=== PATIENT | female | born 1970 | race African-American/Black ===

== ENCOUNTER 2018-05-22 21:34 | Inpatient (IN) | payer OTHER ==
[2018-05-22 22:18] VITALS: BMI 22.2
[2018-05-22] MEDS ORDERED: METHADONE HCL 10 MG TABLET (FOR DETOX USE ONLY) PO ONE ×2 (23:00→23:18)
--- NOTE | 2018-05-22 23:05 | HP ---
COWS - Scale Resting Pulse: 0= CA 80 or Below Sweatin=Flushed/Facial Moisture Restless Observation: 0= Sits Still Pupil Size: 0= Normal to Room Light Bone or Joint Aches: 4=Acute Joint/Muscle Pain Runny Nose/ Eye Tearin= Nasal Congestion GI Upset > 30mins: 2= Nausea/Diarrhea Tremor Observation: 4= Gross Tremor/Twitching Yawning Observation: 0= None Anxiety or Irritability: 2=Irritable/Anxious Goose Flesh Skin: 0=Smooth Skin COWS Score: 15 CIWA Score - Admission Criteria OAS Guidelines: Admission for Medically Managed Detox: Requires at least one of the followin. CIWA greater than 12 2. Seizures within the past 24 hours 3. Delirium tremens within the past 24 hours 4. Hallucinations within the past 24 hours 5. Acute intervention needed for co occurring medical disorder 6. Acute intervention needed for co occurring psychiatric disorder 7. Severe withdrawal that cannot be handled at a lower level of care (continued vomiting, continued diarrhea, abnormal vital signs) requiring intravenous medication and/or fluids 8. Admission ROS [facility] Chief Complaint: Heroin withdrawal symptoms Allergies/Adverse Reactions: Allergies Allergy/AdvReac Type Severity Reaction Status Date / Time No Known Allergies Allergy Verified 05/22/18 22:18 History of Present Illness: 47 years old female with 9 years history of heroin dependence is seeking admission to detox. Patient has been in previous detox and reports 2 years of sobriety. She reports past medical history of depression and denies suicide attempt/suicidal ideation at this time. Exam Limitations: No Limitations - Ebola screening Have you traveled outside of the country in the last 21 days: No (N) Have you had contact with anyone from an Ebola affected area: No Have you been sick,other than usual withdrawal symptoms: No Do you have a fever: No - Review of Systems Constitutional: Chills, Malaise, Night Sweats EENT: reports: Nose Congestion Respiratory: reports: No Symptoms reported Cardiac: reports: No Symptoms Reported GI: reports: Nausea, Poor Appetite, Poor Fluid Intake, Abdominal cramping : reports: No Symptoms Reported Musculoskeletal: reports: Back Pain, Muscle Weakness Integumentary: reports: Dryness Neuro: reports: Headache, Tremors Endocrine: reports: No Symptoms Reported Hematology: reports: No Symptoms Reported Psychiatric: reports: Anxious, Depressed Other Systems: Reviewed and Negative Patient History - Patient Medical History Hx Anemia: No Hx Asthma: No Hx Chronic Obstructive Pulmonary Disease (COPD): No Hx Cancer: No Hx Cardiac Disorders: No Hx Congestive Heart Failure: No Hx Hypertension: No Hx Hypercholesterolemia: No Hx Pacemaker: No HX Cerebrovascular Accident: No Hx Seizures: No Hx Dementia: No Hx Diabetes: No Hx Gastrointestinal Disorders: No Hx Liver Disease: No Hx Genitourinary Disorders: No Hx Sexually Transmitted Disorders: No Hx Renal Disease (ESRD): No Hx Thyroid Disease: No Hx Human Immunodeficiency Virus (HIV): No Hx Hepatitis C: No Hx Depression: Yes (Not on medication) Hx Suicide Attempt: No (Denies suicide attept/suicidal ideation at this time) Hx Bipolar Disorder: No Hx Schizophrenia: No - Patient Surgical History Past Surgical History: No - PPD History Previous Implant?: Yes Documented Results: Negative w/o proof Implanted On Prior [facility] Admission?: No PPD to be Administered?: Yes - Reproductive History Patient is a Female of Child Bearing Age (11 -55 yrs old): Yes Last Menstrual Period: 04/07/18 Patient : No - Smoking Cessation Smoking history: Current every day smoker Have you smoked in the past 12 months: Yes Aproximately how many cigarettes per day: 10 Hx Chewing Tobacco Use: No Initiated information on smoking cessation: Yes 'Breaking Loose' booklet given: 05/22/18 - Substance & Tx. History Hx Alcohol Use: No Hx Substance Use: Yes Substance Use Type: Cocaine, Heroin, Opiates Hx Substance Use Treatment: No - Substances Abused Heroin Route: Injection Frequency: Daily Amount used: 2 BUNDLES Age of first use: 40 Date of Last Use: 05/22/18 Cocaine Route: Smoking Frequency: Daily Amount used: $100 Age of first use: 40 Date of Last Use: 05/22/18 Family Disease History - Family Disease History Family History: Denies Admission Physical Exam [facility] - Vital Signs Vital Signs: Vital Signs - 24 hr 05/22/18 22:08 Temperature 96.2 F L Pulse Rate 67 Respiratory 18 Rate Blood Pressure 123/71 - Physical General Appearance: Yes: Moderate Distress, Tremorous, Irritable, Sweating, Anxious HEENTM: Yes: EOMI, Normal ENT Inspection, Normocephalic, Normal Voice, SAMANTHA Respiratory: Yes: Lungs Clear, Normal Breath Sounds, No Respiratory Distress Neck: Yes: Supple Breast: Yes: Breast Exam Deferred Cardiology: Yes: Regular Rhythm, Regular Rate Abdominal: Yes: Normal Bowel Sounds, Soft Genitourinary: Yes: Within Normal Limits Back: Yes: Normal Inspection Extremities: Yes: Tremors Neurological: Yes: emergency dept tech II-XII NML intact, Alert, Normal Mood/Affect Integumentary: Yes: Warm Lymphatic: Yes: Within Normal Limits - Diagnostic (1) Depression Current Visit: Yes Status: Chronic Qualifiers: Depression Type: unspecified Qualified Code(s): F32.9 - Major depressive disorder, single episode, unspecified (2) Opioid dependence with withdrawal Current Visit: Yes Status: Chronic (3) Cocaine dependence, uncomplicated Current Visit: Yes Status: Chronic Cleared for Admission [facility] - Detox or Rehab [facility] Level of Care: Medically Managed Detox Regimen/Protocol: Methadone [facility] Breath Alcohol Content Breath Alcohol Content: 0 Urine Pregancy Test - Result Urine Test Results: Negative- NO Line Present Urine Drug Screen - Results Drug Screen Negative: No Urine Drug Screen Results: KEITH-Cocaine, OPI-Opiates, BZO-Benzodiazepines, MTD- Methadone, OXY-Oxycodone, FEN-Fentanyl
[2018-05-22] MEDS ORDERED: guaiFENesin/D-METHORPHAN HB 10 ML UNIT-DOSE CUPS PO PRN (23:18)
[2018-05-22] MEDS ORDERED: LOPERAMIDE HCL 2 MG CAPSULE PO PRN (23:18)
[2018-05-22] MEDS ORDERED: P-EPHED 60MG/TRIPROLIDI 2.5MG TABLET PO PRN (23:18)
[2018-05-22] MEDS ORDERED: MAGNESIUM CITRATE 300 ML BOTTLE PO PRN (23:18)
[2018-05-22] MEDS ORDERED: ACETAMINOPHEN 325 MG TABLET (FP) PO PRN (23:18)
[2018-05-22] MEDS ORDERED: MAG HYDROX/AL HYDROX/SIMETH 30 ML UNIT-DOSE CUP PO PRN (23:18)
[2018-05-22] MEDS ORDERED: MENTHOL/PHENOL 1 EACH UD MM PRN (23:18)
[2018-05-22] MEDS ORDERED: NICOTINE POLACRILEX 2 MG GUM BC PRN (23:18)
[2018-05-22] MEDS ORDERED: MAGNESIUM HYDROX 2400MG/30ML ORAL SUSPENSION 30 ML CUP PO PRN (23:18)
[2018-05-23] MEDS ORDERED: METHADONE HCL 10 MG TABLET (FOR DETOX USE ONLY) PO ONE ×4 (01:19→23:00)
[2018-05-23] MEDS: diazePAM 5 MG TABLET PO PRN ×2 (01:41→10:37)
[2018-05-23 10:06] LABS: HEMATOCRIT 32.7 % (32.4-45.2); HEMOGLOBIN 11.3 GM/dL (10.7-15.3); MCH 29.3 pg (25.7-33.7); MCHC 34.7 g/dl (32.0-36.0); MEAN CELL VOLUME 84.5 fl (80-96); MEAN PLT VOLUME 9.3 fl (7.5-11.1); PLATELET COUNT 222 K/MM3 (134-434); RBC 3.86 M/mm3 (3.60-5.2); RDW 14.6 % (11.6-15.6); WHITE BLOOD COUNT 4.8 K/mm3 (4.0-10.0)
[2018-05-23 10:27] LABS: ALBUMIN 3.1 g/dl (3.4-5.0); ALK PHOS 65 U/L (45-117); ANION GAP 7 MMOL/L (8-16); BILIRUBIN,TOTAL 0.2 mg/dL (0.2-1); BLOOD UREA NITROGEN 14 mg/dL (7-18); CALCIUM 8.2 mg/dL (8.5-10.1); CHLORIDE 104 mmol/L (98-107); CO2 28 mmol/L (21-32); CREATININE 0.8 mg/dL (0.55-1.3); GLUCOSE,RANDOM 80 mg/dL (74-106); POTASSIUM 4.1 mmol/L (3.5-5.1); SGOT/AST 24 U/L (15-37); SGPT/ALT 24 U/L (13-61); SODIUM 139 mmol/L (136-145); TOT PROT 6.4 g/dl (6.4-8.2)
[2018-05-23] MEDS: PRENATAL VITAMINS W/ FOLIC ACID TABLET (FP) PO SCH (10:37)
[2018-05-23] MEDS: NICOTINE 14 MG/24 HOURS TOPICAL PATCH TD SCH (10:39)
--- NOTE | 2018-05-23 12:19 | PN ---
BHS COWS - Scale Resting Pulse: 1= [place] 81-100 Sweatin=Flushed/Facial Moisture Restless Observation: 1= Difficult to Sit Still Pupil Size: 0= Normal to Room Light Bone or Joint Aches: 2= Severe Diffuse Aches Runny Nose/ Eye Tearin= Runny Nose/Eyes GI Upset > 30mins: 0= None Tremor Observation of Outstretched Hands: 2= Slight Tremor Visible Yawning Observation: 2= >3x During Session Anxiety or Irritability: 2=Irritable/Anxious Goose Flesh Skin: 0=Smooth Skin COWS Score: 14 BHS Progress Note (SOAP) Subjective: irritable restless sweats body aches chills agitation interrupted sleep Objective: 05/23/18 12:18 Vital Signs Temperature 97.8 F 05/23/18 09:22 Pulse Rate 84 05/23/18 09:22 Respiratory Rate 16 05/23/18 09:22 Blood Pressure 98/60 05/23/18 09:22 O2 Sat by Pulse Oximetry (%) Laboratory Tests 05/23/18 05/23/18 05/23/18 07:00 07:00 07:00 WBC 4.8 RBC 3.86 Hgb 11.3 Hct 32.7 MCV 84.5 MCH 29.3 MCHC 34.7 RDW 14.6 Plt Count 222 MPV 9.3 Sodium 139 Potassium 4.1 Chloride 104 Carbon Dioxide 28 Anion Gap 7 L BUN 14 Creatinine 0.8 Creat Clearance w eGFR > 60 Random Glucose 80 Calcium 8.2 L Total Bilirubin 0.2 AST 24 ALT 24 Alkaline Phosphatase 65 Total Protein 6.4 Albumin 3.1 L RPR Titer Nonreactive rest of labs pending aaox3 ambulating no acute distress Assessment: 05/23/18 12:19 withdrawal sx Plan: continue detox increase fluids labs pending
[2018-05-23] MEDS: IBUPROFEN 400 MG TABLET (FP) PO PRN (19:21)
[2018-05-23] MEDS: THIAMINE HCL 100 MG TABLET (FP) PO SCH (22:30)
[2018-05-23] MEDS: MELATONIN 5 MG TABLETS PO PRN (22:32)
[2018-05-24] MEDS ORDERED: METHADONE HCL 10 MG TABLET (FOR DETOX USE ONLY) PO ONE (10:00)
[2018-05-24] MEDS ORDERED: METHADONE HCL 5 MG TABLET (FOR DETOX USE ONLY) PO ONE (10:00)
[2018-05-24] MEDS: diazePAM 5 MG TABLET PO PRN ×2 (10:20→22:12)
[2018-05-24] MEDS: PRENATAL VITAMINS W/ FOLIC ACID TABLET (FP) PO SCH (10:20)
[2018-05-24] MEDS: NICOTINE 14 MG/24 HOURS TOPICAL PATCH TD SCH (10:23)
--- NOTE | 2018-05-24 12:55 | PN ---
B[facility] COWS - Scale Resting Pulse: 0= [place] 80 or Below Sweatin=Flushed/Facial Moisture Restless Observation: 0= Sits Still Pupil Size: 0= Normal to Room Light Bone or Joint Aches: 1= Mild Discomfort Runny Nose/ Eye Tearin= Nasal Congestion GI Upset > 30mins: 0= None Tremor Observation of Outstretched Hands: 1= Tremor Plummer, Not Seen Yawning Observation: 2= >3x During Session Anxiety or Irritability: 1=Feels Anxious/Irritable Goose Flesh Skin: 0=Smooth Skin COWS Score: 8 BHS Progress Note (SOAP) Subjective: anxiety interrupted sleep restless Objective: 05/24/18 12:54 Vital Signs Temperature 98.2 F 05/24/18 09:41 Pulse Rate 78 05/24/18 09:41 Respiratory Rate 16 05/24/18 09:41 Blood Pressure 104/60 05/24/18 09:41 O2 Sat by Pulse Oximetry (%) Laboratory Tests 05/23/18 05/23/18 05/23/18 07:00 07:00 07:00 WBC 4.8 RBC 3.86 Hgb 11.3 Hct 32.7 MCV 84.5 MCH 29.3 MCHC 34.7 RDW 14.6 Plt Count 222 MPV 9.3 Sodium 139 Potassium 4.1 Chloride 104 Carbon Dioxide 28 Anion Gap 7 L BUN 14 Creatinine 0.8 Creat Clearance w eGFR > 60 Random Glucose 80 Calcium 8.2 L Total Bilirubin 0.2 AST 24 ALT 24 Alkaline Phosphatase 65 Total Protein 6.4 Albumin 3.1 L RPR Titer Nonreactive aaox3 ambulating no acute distress Assessment: 05/24/18 12:54 mild withdrawal sx Plan: continue detox increase fluids
[2018-05-24] MEDS: THIAMINE HCL 100 MG TABLET (FP) PO SCH (22:12)
[2018-05-24] MEDS: MELATONIN 5 MG TABLETS PO PRN (22:12)
[2018-05-24] MEDS: IBUPROFEN 400 MG TABLET (FP) PO PRN (22:46)
[2018-05-25] MEDS ORDERED: METHADONE HCL 5 MG TABLET (FOR DETOX USE ONLY) PO ONE ×2 (10:00)
[2018-05-25] MEDS: PRENATAL VITAMINS W/ FOLIC ACID TABLET (FP) PO SCH (10:18)
[2018-05-25] MEDS: diazePAM 5 MG TABLET PO PRN ×2 (10:19→22:28)
[2018-05-25] MEDS: NICOTINE 14 MG/24 HOURS TOPICAL PATCH TD SCH (10:20)
--- NOTE | 2018-05-25 10:53 | PN ---
BHS Progress Note (SOAP) Subjective: joints pain body aches muscle cramp anxiety restlessness Objective: 05/25/18 10:52 Vital Signs Temperature 98.1 F 05/25/18 09:34 Pulse Rate 78 05/25/18 09:34 Respiratory Rate 16 05/25/18 09:34 Blood Pressure 99/68 05/25/18 09:34 O2 Sat by Pulse Oximetry (%) Laboratory Last Values WBC 4.8 K/mm3 (4.0-10.0) 05/23/18 07:00 RBC 3.86 M/mm3 (3.60-5.2) 05/23/18 07:00 Hgb 11.3 GM/dL (10.7-15.3) 05/23/18 07:00 Hct 32.7 % (32.4-45.2) 05/23/18 07:00 MCV 84.5 fl (80-96) 05/23/18 07:00 MCH 29.3 pg (25.7-33.7) 05/23/18 07:00 MCHC 34.7 g/dl (32.0-36.0) 05/23/18 07:00 RDW 14.6 % (11.6-15.6) 05/23/18 07:00 Plt Count 222 K/MM3 (134-434) 05/23/18 07:00 MPV 9.3 fl (7.5-11.1) 05/23/18 07:00 Sodium 139 mmol/L (136-145) 05/23/18 07:00 Potassium 4.1 mmol/L (3.5-5.1) 05/23/18 07:00 Chloride 104 mmol/L (98-107) 05/23/18 07:00 Carbon Dioxide 28 mmol/L (21-32) 05/23/18 07:00 Anion Gap 7 MMOL/L (8-16) L 05/23/18 07:00 BUN 14 mg/dL (7-18) 05/23/18 07:00 Creatinine 0.8 mg/dL (0.55-1.3) 05/23/18 07:00 Creat Clearance w eGFR > 60 (>60) 05/23/18 07:00 Random Glucose 80 mg/dL (74-106) 05/23/18 07:00 Calcium 8.2 mg/dL (8.5-10.1) L 05/23/18 07:00 Total Bilirubin 0.2 mg/dL (0.2-1) 05/23/18 07:00 AST 24 U/L (15-37) 05/23/18 07:00 ALT 24 U/L (13-61) 05/23/18 07:00 Alkaline Phosphatase 65 U/L (45-117) 05/23/18 07:00 Total Protein 6.4 g/dl (6.4-8.2) 05/23/18 07:00 Albumin 3.1 g/dl (3.4-5.0) L 05/23/18 07:00 RPR Titer Nonreactive (NONREACTIVE) 05/23/18 07:00 lab noted Assessment: 05/25/18 10:52 withdrawal sx Plan: continue detox
[2018-05-25] MEDS: THIAMINE HCL 100 MG TABLET (FP) PO SCH (22:28)
[2018-05-25] MEDS: MELATONIN 5 MG TABLETS PO PRN (22:29)
[2018-05-26] MEDS ORDERED: METHADONE HCL 10 MG TABLET (FOR DETOX USE ONLY) PO ONE (10:00)
[2018-05-26] MEDS ORDERED: METHADONE HCL 5 MG TABLET (FOR DETOX USE ONLY) PO ONE (10:00)
[2018-05-26] MEDS: PRENATAL VITAMINS W/ FOLIC ACID TABLET (FP) PO SCH (10:04)
[2018-05-26] MEDS: NICOTINE 14 MG/24 HOURS TOPICAL PATCH TD SCH (10:05)
[2018-05-26 10:31] LABS: URINE APPEARANCE SLCLOUDY; URINE BILIRUBIN NEGATIVE (<2.0 mg/dL); URINE COLOR LTYELLOW; URINE GLUCOSE (UA) NEGATIVE (NEGATIVE); URINE KETONE NEGATIVE (NEGATIVE); URINE LEUK ESTERASE NEGATIVE (NEGATIVE); URINE NITRITE NEGATIVE (NEGATIVE); URINE PROTEIN NEGATIVE (NEGATIVE); URINE UROBILINOGEN NEGATIVE mg/dL (0.2-1.0)
--- NOTE | 2018-05-26 11:21 | PN ---
BHS Progress Note (SOAP) Subjective: anxiety irritable Objective: 05/26/18 11:21 Vital Signs Temperature 97.7 F 05/26/18 09:14 Pulse Rate 73 05/26/18 09:14 Respiratory Rate 18 05/26/18 09:14 Blood Pressure 98/61 05/26/18 09:14 O2 Sat by Pulse Oximetry (%) aaox3 ambulating no acute distress Assessment: 05/26/18 11:21 mild withdrawal sx Plan: continue detox increase fluids
[2018-05-26] MEDS: THIAMINE HCL 100 MG TABLET (FP) PO SCH (22:37)
[2018-05-27] MEDS ORDERED: METHADONE HCL 5 MG TABLET (FOR DETOX USE ONLY) PO ONE (06:00)
[2018-05-27] MEDS ORDERED: METHADONE HCL 10 MG TABLET (FOR DETOX USE ONLY) PO ONE ×2 (06:00→10:00)
[2018-05-27 07:15] VITALS: BP 98/65; PULSE 94; TEMP 97.3
--- NOTE | 2018-05-27 09:10 | DS ---
[facility] Detox Discharge Summary Admission Date: 05/22/18 Discharge Date: 05/27/18 - History Present History: Opioid Dependence - Physical Exam Results Vital Signs: Vital Signs Temperature 97.3 F L 05/27/18 07:29 Pulse Rate 94 H 05/27/18 07:29 Respiratory Rate 20 05/27/18 07:29 Blood Pressure 98/65 05/27/18 07:29 O2 Sat by Pulse Oximetry (%) - Treatment Hospital Course: Detox Protocol Followed, Detoxed Safely, Responded well, Discharged Condition Good, Rehab Referral Accepted - Medication Discharge Medications: Ambulatory Orders NK [No Known Home Medication] 05/22/18 - AMA Did Patient Leave Against Medical Advice: No (going home. )
[2018-05-28] MEDS ORDERED: METHADONE HCL 5 MG TABLET (FOR DETOX USE ONLY) PO ONE (06:00)
== END 2018-05-27 07:01 | disposition home or self-care (01) | DRG 773 ==
LOC: YASAS 21:34 → Y6N 23:42
PROVIDERS: ADMIT Neuromusculoskeletal Medicine & OMM; ATTEND Neuromusculoskeletal Medicine & OMM
PROC: HZ2ZZZZ Detoxification Services for Substance Abuse Treatment (ICD-10-PCS; principal; 2018-05-22)
DX: F11.23 Opioid dependence with withdrawal (principal); F14.20 Cocaine dependence, uncomplicated; F17.210 Nicotine dependence, cigarettes, uncomplicated; F32.9 Major depressive disorder, single episode, unspecified
CPT/HCPCS: 36415; 80053; 81003; 85027; 86593

== ENCOUNTER 2018-06-28 08:43 | Inpatient (IN) | payer OTHER ==
[2018-06-28 10:14] VITALS: BMI 22.2
--- NOTE | 2018-06-28 12:23 | HP ---
CIWA Score Nausea/Vomitin Muscle Tremors: 4-Moderate,w/Arms Extend Anxiety: 4-Mod. Anxious/Guarded Agitation: 1-Slight > Activity Paroxysmal Sweats: 1-Minimal Palms Moist Orientation: 0-Oriented Tacttile Disturbances: 0-None Auditory Disturbances: 0-None Visual Disturbances: 0-None Headache: 2-Mild CIWA-Ar Total Score: 15 - Admission Criteria OASAS Guidelines: Admission for Medically Managed Detox: Requires at least one of the followin. CIWA greater than 12 2. Seizures within the past 24 hours 3. Delirium tremens within the past 24 hours 4. Hallucinations within the past 24 hours 5. Acute intervention needed for co occurring medical disorder 6. Acute intervention needed for co occurring psychiatric disorder 7. Severe withdrawal that cannot be handled at a lower level of care (continued vomiting, continued diarrhea, abnormal vital signs) requiring intravenous medication and/or fluids 8. Patient presents the following: CIWA greater than 12 Admission Criteria Met: Admission criteria met Admission ROS S - HPI Chief Complaint: I want to get myself together, I need help Allergies/Adverse Reactions: Allergies Allergy/AdvReac Type Severity Reaction Status Date / Time No Known Allergies Allergy Verified 06/28/18 11:55 History of Present Illness: 47 yo woman here for detox from alcohol - on methadone program at [facility] ( [facility], 70 mg, brought in bottle for verification, was dosed today). No seizures but does have black outs. Patient also with a long history of opiate use, continues to use heroin despite being on methadone program. Urine tox + benzo but not using benzo separately - thinks mixed with heroin and/or cocaine. Interested in rehab after detox. Exam Limitations: Clinical Condition - Ebola screening Have you traveled outside of the country in the last 21 days: No (N) Have you had contact with anyone from an Ebola affected area: No Have you been sick,other than usual withdrawal symptoms: No Do you have a fever: No - Review of Systems Constitutional: Chills, Malaise, Night Sweats, Changes in sleep, Weakness EENT: reports: No Symptoms Reported Respiratory: reports: No Symptoms reported Cardiac: reports: No Symptoms Reported GI: reports: Poor Appetite, Poor Fluid Intake, Abdominal cramping : reports: Frequency Musculoskeletal: reports: No Symptoms Reported Integumentary: reports: Dryness Neuro: reports: Tremors Endocrine: reports: No Symptoms Reported Hematology: reports: No Symptoms Reported Psychiatric: reports: Judgement Intact, Mood/Affect Appropiate, Orientated x3, Anxious Other Systems: Reviewed and Negative Patient History - Patient Medical History Hx Anemia: No Hx Asthma: No Hx Chronic Obstructive Pulmonary Disease (COPD): No Hx Cancer: No Hx Cardiac Disorders: No Hx Congestive Heart Failure: No Hx Hypertension: No Hx Hypercholesterolemia: No Hx Pacemaker: No HX Cerebrovascular Accident: No Hx Seizures: No Hx Dementia: No Hx Diabetes: No Hx Gastrointestinal Disorders: No Hx Liver Disease: No Hx Genitourinary Disorders: No Hx Sexually Transmitted Disorders: No Hx Renal Disease (ESRD): No Hx Thyroid Disease: No Hx Human Immunodeficiency Virus (HIV): No Hx Hepatitis C: No Hx Depression: Yes (hx being hospitalized 2009, Not on medication) Hx Suicide Attempt: No (Denies suicide attept/suicidal ideation at this time) Hx Bipolar Disorder: No Hx Schizophrenia: No - Patient Surgical History Past Surgical History: No Hx Section: Yes (two) Hx Orthopedic Surgery: Yes (C4-5 fusion - 2007) - PPD History Previous Implant?: Yes Documented Results: Negative w/proof Implanted On Prior [facility] Admission?: Yes Date: 05/25/18 PPD to be Administered?: No - Reproductive History Patient is a Female of Child Bearing Age (11 -55 yrs old): Yes Last Menstrual Period: 04/07/18 Patient : No - Smoking Cessation Smoking history: Current every day smoker Have you smoked in the past 12 months: Yes Aproximately how many cigarettes per day: 10 Hx Chewing Tobacco Use: No Initiated information on smoking cessation: Yes 'Breaking Loose' booklet given: 06/28/18 (give on floor) - Substance & Tx. History Hx Alcohol Use: Yes Hx Substance Use: Yes Substance Use Type: Alcohol, Cocaine, Heroin Hx Substance Use Treatment: Yes (on [facility], detox, rehab, hx suboxone years ago) - Substances Abused Heroin Route: Injection Frequency: Daily Amount used: $100 Age of first use: 40 Date of Last Use: 06/27/18 Cocaine Route: Injection Frequency: Daily Amount used: $50 Age of first use: 40 Date of Last Use: 06/27/18 Alcohol Route: Oral Frequency: Daily Amount used: three 40oz cans of beer, 1/2 pint day liquor Age of first use: 16 Date of Last Use: 06/27/18 Family Disease History - Family Disease History Family Disease History: Other: Father (does not know), Mother (living, healthy) , Brother (six - living - healthy), Sister (two - living- healthy), Daughter ( three ages 31,18, 16 - healthy) Admission Physical Exam [facility] - Vital Signs Vital Signs: Vital Signs - 24 hr 06/28/18 10:12 Temperature 98.3 F Pulse Rate 75 Respiratory 19 Rate Blood Pressure 97/63 - Physical General Appearance: Yes: Nourished, Appropriately Dressed, Mild Distress, Tremorous, Sweating, Anxious HEENTM: Yes: EOMI, Hearing grossly Normal, Normocephalic, Normal Voice, Pharynx Normal Respiratory: Yes: Normal Breath Sounds, No Respiratory Distress Neck: Yes: No masses,lesions,Nodules, Supple Breast: Yes: Breast Exam Deferred Cardiology: Yes: Regular Rhythm, Regular Rate Abdominal: Yes: Flat, Soft Genitourinary: Yes: Frequency Back: Yes: Normal Inspection Musculoskeletal: Yes: full range of Motion, Gait Steady Extremities: Yes: Normal Inspection, Normal Range of Motion, Non-Tender Neurological: Yes: Fully Oriented, Alert, Motor Strength 5/5, Normal Mood/Affect , Normal Response Integumentary: Yes: Normal Color, Dry, Warm, Track Workman (no erythema, no abscess) Lymphatic: Yes: Within Normal Limits - Diagnostic (1) Alcohol dependence with uncomplicated withdrawal Current Visit: Yes Status: Chronic (2) Cocaine dependence, uncomplicated Current Visit: Yes Status: Chronic (3) Methadone maintenance therapy patient Current Visit: Yes Status: Chronic (4) Nicotine dependence Current Visit: Yes Status: Chronic Qualifiers: Nicotine product type: cigarettes Substance use status: uncomplicated Qualified Code(s): F17.210 - Nicotine dependence, cigarettes, uncomplicated Cleared for Admission [facility] - Detox or Rehab [facility] Level of Care: Medically Managed Detox Regimen/Protocol: Librium [facility] Breath Alcohol Content Breath Alcohol Content: 0 Urine Pregancy Test - Result Urine Test Results: Negative- NO Line Present Urine Drug Screen - Results Drug Screen Negative: No Urine Drug Screen Results: KEITH-Cocaine, OPI-Opiates, BAR-Barbiturates, BZO- Benzodiazepines, MTD-Methadone, FEN-Fentanyl
[2018-06-28] MEDS ORDERED: NICOTINE POLACRILEX 4 MG GUM BUC PRN (12:26)
[2018-06-28] MEDS ORDERED: MAGNESIUM CITRATE 300 ML BOTTLE PO PRN (12:26)
[2018-06-28] MEDS ORDERED: P-EPHED 60MG/TRIPROLIDI 2.5MG TABLET PO PRN (12:26)
[2018-06-28] MEDS ORDERED: LOPERAMIDE HCL 2 MG CAPSULE PO PRN (12:26)
[2018-06-28] MEDS ORDERED: MAG HYDROX/AL HYDROX/SIMETH 30 ML UNIT-DOSE CUP PO PRN (12:26)
[2018-06-28] MEDS ORDERED: MAGNESIUM HYDROX 2400MG/30ML ORAL SUSPENSION 30 ML CUP PO PRN (12:26)
[2018-06-28] MEDS ORDERED: ACETAMINOPHEN 325 MG TABLET (FP) PO PRN (12:26)
[2018-06-28] MEDS ORDERED: chlordiazePOXIDE HCL 25 MG CAPSULE PO PRN (12:26)
[2018-06-28] MEDS ORDERED: MENTHOL/PHENOL 1 EACH UD MM PRN (12:26)
[2018-06-28] MEDS: IBUPROFEN 400 MG TABLET (FP) PO PRN (13:44)
[2018-06-28] MEDS: guaiFENesin/D-METHORPHAN HB 10 ML UNIT-DOSE CUPS PO PRN (13:44)
[2018-06-28] MEDS: chlordiazePOXIDE HCL 25 MG CAPSULE PO SCH ×2 (18:05→22:11)
[2018-06-28] MEDS: THIAMINE HCL 100 MG TABLET (FP) PO SCH (22:12)
[2018-06-28] MEDS: MELATONIN 5 MG TABLETS PO PRN (22:13)
[2018-06-29] MEDS: chlordiazePOXIDE HCL 25 MG CAPSULE PO SCH ×4 (06:00→22:02)
[2018-06-29] MEDS: IBUPROFEN 400 MG TABLET (FP) PO PRN (06:14)
[2018-06-29] MEDS: guaiFENesin/D-METHORPHAN HB 10 ML UNIT-DOSE CUPS PO PRN ×2 (06:14→18:43)
[2018-06-29 10:26] LABS: HEMOGLOBIN 12.7 GM/dL (10.7-15.3); MCH 27.1 pg (25.7-33.7); MEAN CELL VOLUME 87.4 fl (80-96); MEAN PLT VOLUME 9.3 fl (7.5-11.1); PLATELET COUNT 211 K/MM3 (134-434); RBC 4.69 M/mm3 (3.60-5.2); RDW 15.1 % (11.6-15.6); WHITE BLOOD COUNT 9.7 K/mm3 (4.0-10.0)
[2018-06-29] MEDS ORDERED: METHADONE HCL 10 MG TABLET PO ONE (10:31)
[2018-06-29 10:46] LABS: ALBUMIN 3.5 g/dl (3.4-5.0); ALK PHOS 75 U/L (45-117); ANION GAP 5 MMOL/L (8-16); BILIRUBIN,TOTAL 0.3 mg/dL (0.2-1); BLOOD UREA NITROGEN 12 mg/dL (7-18); CHLORIDE 106 mmol/L (98-107); CO2 31 mmol/L (21-32); CREATININE 0.8 mg/dL (0.55-1.3); GLUCOSE,RANDOM 116 mg/dL (74-106); POTASSIUM 3.9 mmol/L (3.5-5.1); SGOT/AST 21 U/L (15-37); SGPT/ALT 22 U/L (13-61); SODIUM 141 mmol/L (136-145); TOT PROT 7.2 g/dl (6.4-8.2)
[2018-06-29] MEDS ORDERED: METHADONE 40 MG, METHADONE 30 MG PO ONE (13:15)
[2018-06-29] MEDS ORDERED: METHADONE HCL 40 MG DISPERSABLE TABLET ONE (13:17)
[2018-06-29] MEDS ORDERED: METHADONE HCL 10 MG TABLET ONE (13:17)
[2018-06-29] MEDS: PRENATAL VITAMINS W/ FOLIC ACID TABLET (FP) PO SCH (13:25)
--- NOTE | 2018-06-29 17:09 | PN ---
[facility] CIWA - CIWA Score Nausea/Vomitin Muscle Tremors: 4-Moderate,w/Arms Extend Anxiety: 4-Mod. Anxious/Guarded Agitation: 4-Moderately Restless Paroxysmal Sweats: 3 Orientation: 0-Oriented Tacttile Disturbances: 0-None Auditory Disturbances: 0-None Visual Disturbances: 0-None Headache: 0-None Present CIWA-Ar Total Score: 17 [facility] Progress Note (SOAP) Subjective: Anxious, agitated, chills, sweating. Patient reported taking methadone 70mg daily and that she follows up at [facility] [address] and that she has today's dose in her property. Objective: 06/29/18 17:03 Last Vital Signs Temp Pulse Resp BP Pulse Ox 98.4 F 63 16 92/55 L 06/29/18 13:18 06/29/18 13:18 06/29/18 13:18 06/29/18 13:18 Hypotension noted: 92/55 Laboratory Tests 06/29/18 06/29/18 06/29/18 07:30 07:30 07:30 WBC 9.7 RBC 4.69 Hgb 12.7 Hct 41.0 D MCV 87.4 MCH 27.1 MCHC 31.0 L RDW 15.1 Plt Count 211 MPV 9.3 Sodium 141 Potassium 3.9 Chloride 106 Carbon Dioxide 31 Anion Gap 5 L BUN 12 Creatinine 0.8 Creat Clearance w eGFR > 60 Random Glucose 116 H Calcium 8.0 L Total Bilirubin 0.3 AST 21 ALT 22 Alkaline Phosphatase 75 Total Protein 7.2 Albumin 3.5 RPR Titer Nonreactive Labs reviewed: calcium 8.0 Assessment: 06/29/18 17:05 Withdrawal symptoms Hypotension noted Hypocalcemia noted Plan: Continue detox Hypotension: asymptomatic, encouraged PO water hydration Hypocalcemia: calcium carbonate 650mg PO x 1 dose today and 2 doses tomorrow Methadone [facility] 70mg PO ordered x 1 dose today, needs verification in AM in order to continue
[2018-06-29] MEDS: CALCIUM CARBONATE 650 MG TABLET PO SCH (22:02)
[2018-06-29] MEDS: THIAMINE HCL 100 MG TABLET (FP) PO SCH (22:02)
[2018-06-29] MEDS: MELATONIN 5 MG TABLETS PO PRN (22:03)
[2018-06-30] MEDS: chlordiazePOXIDE HCL 25 MG CAPSULE PO SCH ×2 (05:30→10:07)
[2018-06-30] MEDS ORDERED: METHADONE HCL 10 MG TABLET PO SCH (07:45)
[2018-06-30] MEDS ORDERED: METHADONE HCL 40 MG DISPERSABLE TABLET ONE (08:01)
[2018-06-30] MEDS ORDERED: METHADONE HCL 10 MG TABLET ONE (08:01)
[2018-06-30] MEDS: METHADONE 40 MG, METHADONE 30 MG PO SCH (08:01)
[2018-06-30] MEDS: PRENATAL VITAMINS W/ FOLIC ACID TABLET (FP) PO SCH (10:07)
[2018-06-30] MEDS: CALCIUM CARBONATE 650 MG TABLET PO SCH ×2 (10:07→22:12)
[2018-06-30] MEDS ORDERED: COLLOIDAL OATMEAL 1 BAR EACH TP PRN (11:54)
--- NOTE | 2018-06-30 12:44 | PN ---
[facility] CIWA - CIWA Score Nausea/Vomitin-Mild Nausea/No Vomiting Muscle Tremors: 3 Anxiety: 3 Agitation: 3 Paroxysmal Sweats: 1-Minimal Palms Moist Orientation: 0-Oriented Tacttile Disturbances: 0-None Auditory Disturbances: 0-None Visual Disturbances: 0-None Headache: 1-Very Mild CIWA-Ar Total Score: 12 S Progress Note (SOAP) Subjective: tremor sweat trouble sleep through the night restlessness Objective: 06/30/18 12:46 Vital Signs Temperature 97.9 F 06/30/18 09:30 Pulse Rate 69 06/30/18 09:30 Respiratory Rate 16 06/30/18 09:30 Blood Pressure 96/60 06/30/18 09:30 O2 Sat by Pulse Oximetry (%) Laboratory Last Values WBC 9.7 K/mm3 (4.0-10.0) 06/29/18 07:30 RBC 4.69 M/mm3 (3.60-5.2) 06/29/18 07:30 Hgb 12.7 GM/dL (10.7-15.3) 06/29/18 07:30 Hct 41.0 % (32.4-45.2) D 06/29/18 07:30 MCV 87.4 fl (80-96) 06/29/18 07:30 MCH 27.1 pg (25.7-33.7) 06/29/18 07:30 MCHC 31.0 g/dl (32.0-36.0) L 06/29/18 07:30 RDW 15.1 % (11.6-15.6) 06/29/18 07:30 Plt Count 211 K/MM3 (134-434) 06/29/18 07:30 MPV 9.3 fl (7.5-11.1) 06/29/18 07:30 Sodium 141 mmol/L (136-145) 06/29/18 07:30 Potassium 3.9 mmol/L (3.5-5.1) 06/29/18 07:30 Chloride 106 mmol/L (98-107) 06/29/18 07:30 Carbon Dioxide 31 mmol/L (21-32) 06/29/18 07:30 Anion Gap 5 MMOL/L (8-16) L 06/29/18 07:30 BUN 12 mg/dL (7-18) 06/29/18 07:30 Creatinine 0.8 mg/dL (0.55-1.3) 06/29/18 07:30 Creat Clearance w eGFR > 60 (>60) 06/29/18 07:30 Random Glucose 116 mg/dL (74-106) H 06/29/18 07:30 Calcium 8.0 mg/dL (8.5-10.1) L 06/29/18 07:30 Total Bilirubin 0.3 mg/dL (0.2-1) 06/29/18 07:30 AST 21 U/L (15-37) 06/29/18 07:30 ALT 22 U/L (13-61) 06/29/18 07:30 Alkaline Phosphatase 75 U/L (45-117) 06/29/18 07:30 Total Protein 7.2 g/dl (6.4-8.2) 06/29/18 07:30 Albumin 3.5 g/dl (3.4-5.0) 06/29/18 07:30 RPR Titer Nonreactive (NONREACTIVE) 06/29/18 07:30 lab noted Assessment: 06/30/18 12:47 withdrawal sx Plan: continue detox
[2018-06-30] MEDS: IBUPROFEN 400 MG TABLET (FP) PO PRN (14:39)
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
[2018-06-30] MEDS: chlordiazePOXIDE 5 MG CAPSULE PO SCH ×2 (16:38→22:13)
[2018-06-30] MEDS ORDERED: CLOTRIMAZOLE 1% VAGINAL CREAM WITH APPLICATOR 45 GM TUBE VG SCH (22:00)
[2018-06-30] MEDS: THIAMINE HCL 100 MG TABLET (FP) PO SCH (22:12)
[2018-07-01] MEDS ORDERED: METHADONE HCL 40 MG DISPERSABLE TABLET ONE (03:24)
[2018-07-01] MEDS ORDERED: METHADONE HCL 10 MG TABLET ONE (03:24)
[2018-07-01] MEDS: METHADONE 40 MG, METHADONE 30 MG PO SCH (05:39)
--- NOTE | 2018-07-01 05:44 | PN ---
[facility] Progress Note Note: 'S NOTE: INFORMED AT ABOUT 5:40AM THAT SHE WANTS TO SIGN OUT AMA BECAUSE TODAY IS HER BIRTHDAY. SO, THE PT. SIGNED OUT AMA AND ABOUT TO LEAVE THE FACILITY SOON. RECOMMENDED TO F/U WITH PMD AND OUT PT. PROGRAMS. PROVIDER: BUCK CLEMONS MD
[2018-07-01] MEDS: chlordiazePOXIDE 5 MG CAPSULE PO SCH (05:50)
[2018-07-01 06:35] VITALS: BP 98/56; PULSE 74; TEMP 96.9
[2018-07-01] MEDS ORDERED: chlordiazePOXIDE HCL 10 MG CAPSULE PO SCH (17:00)
== END 2018-07-01 06:07 | disposition left against medical advice (07) | DRG 770 ==
LOC: YASAS 08:43 → Y3N 12:30
PROC: HZ2ZZZZ Detoxification Services for Substance Abuse Treatment (ICD-10-PCS; principal; 2018-06-28)
DX: F11.23 Opioid dependence with withdrawal (principal); F10.230 Alcohol dependence with withdrawal, uncomplicated; F14.20 Cocaine dependence, uncomplicated; F17.210 Nicotine dependence, cigarettes, uncomplicated; F19.24 Other psychoactive substance dependence with psychoactive substance-induced mood disorder; F43.10 Post-traumatic stress disorder, unspecified; F32.9 Major depressive disorder, single episode, unspecified; E83.51 Hypocalcemia; I95.9 Hypotension, unspecified
CPT/HCPCS: 36415; 80053; 85027; 86593

== ENCOUNTER 2018-08-03 09:50 | Inpatient (IN) | payer OTHER ==
[2018-08-03 10:16] VITALS: BMI 23.7
--- NOTE | 2018-08-03 11:09 | HP ---
CIWA Score Nausea/Vomitin Muscle Tremors: 2 Anxiety: 2 Agitation: 2 Paroxysmal Sweats: 1-Minimal Palms Moist Orientation: 0-Oriented Tacttile Disturbances: 1-Very Mild Itch/Numbness Auditory Disturbances: 1-Very Mild Visual Disturbances: 0-None Headache: 2-Mild CIWA-Ar Total Score: 13 - Admission Criteria OASAS Guidelines: Admission for Medically Managed Detox: Requires at least one of the followin. CIWA greater than 12 2. Seizures within the past 24 hours 3. Delirium tremens within the past 24 hours 4. Hallucinations within the past 24 hours 5. Acute intervention needed for co occurring medical disorder 6. Acute intervention needed for co occurring psychiatric disorder 7. Severe withdrawal that cannot be handled at a lower level of care (continued vomiting, continued diarrhea, abnormal vital signs) requiring intravenous medication and/or fluids 8. Patient presents the following: CIWA greater than 12 Admission Criteria Met: Admission criteria met Admission ROS S - HPI Chief Complaint: i need help to stop drinking alcohol,klonopin,heroin abused,mmtp 80 mgs/day , last medicated today, last treatment 06/28/18 to 07/01/18 nicotine dependence coughing for 7days with yellowish style in right upper eyelid for 5 days weight loss longest period of sobriety 3 years Allergies/Adverse Reactions: Allergies Allergy/AdvReac Type Severity Reaction Status Date / Time No Known Allergies Allergy Verified 08/03/18 12:30 History of Present Illness: this 48 years old female with alcohol and klonopin dependence,heroin abused, mmtp 80 mgs/day,seeking detox,last methadone today seeking detox as mentioned above Exam Limitations: No Limitations - Ebola screening Have you traveled outside of the country in the last 21 days: No (N) Have you had contact with anyone from an Ebola affected area: No Have you been sick,other than usual withdrawal symptoms: No Do you have a fever: No - Review of Systems Constitutional: Chills, Loss of Appetite, Malaise, Night Sweats, Changes in sleep, Weakness, Unintentional Wgt. Loss EENT: reports: Tearing, Nose Congestion, Other (coughing with yellowish mucous for 5 days stye of right upper eyelid) Respiratory: reports: Other (coughig with yellowish mucous) Cardiac: reports: No Symptoms Reported GI: reports: Diarrhea, Nausea, Vomiting, Abdominal cramping : reports: No Symptoms Reported Musculoskeletal: reports: Back Pain, Muscle Pain Integumentary: reports: Dryness Neuro: reports: Headache, Tremors Endocrine: reports: No Symptoms Reported Hematology: reports: No Symptoms Reported Psychiatric: reports: No Sypmtoms Reported, Judgement Intact, Mood/Affect Appropiate, Orientated x3 Other Systems: Reviewed and Negative Patient History - Patient Medical History Hx Anemia: No Hx Asthma: No Hx Chronic Obstructive Pulmonary Disease (COPD): No Hx Cancer: No Hx Cardiac Disorders: No Hx Congestive Heart Failure: No Hx Hypertension: No Hx Hypercholesterolemia: No Hx Pacemaker: No HX Cerebrovascular Accident: No Hx Seizures: No Hx Dementia: No Hx Diabetes: No Hx Gastrointestinal Disorders: No Hx Liver Disease: No Hx Genitourinary Disorders: No Hx Sexually Transmitted Disorders: No Hx Renal Disease (ESRD): No Hx Thyroid Disease: No Hx Human Immunodeficiency Virus (HIV): No (last 2018 negative) Hx Hepatitis C: No Hx Depression: Yes (hx being hospitalized 2009, Not on medication) Hx Suicide Attempt: No (Denies suicide attept/suicidal ideation at this time) Hx Bipolar Disorder: No Hx Schizophrenia: No Other Medical History: no suicidal,no homicidal - Patient Surgical History Past Surgical History: No Hx Neurologic Surgery: No Hx Cataract Extraction: No Hx Cardiac Surgery: No Hx Lung Surgery: No Hx Breast Surgery: No Hx Breast Biopsy: No Hx Abdominal Surgery: No Hx Appendectomy: No Hx Cholecystectomy: No Hx Genitourinary Surgery: No Hx Section: Yes (two) Hx Orthopedic Surgery: Yes (C4-5 fusion - 2008) Anesthesia Reaction: No - PPD History Previous Implant?: Yes Documented Results: Negative w/proof Date: 05/25/18 Results: 0 mm PPD to be Administered?: No - Reproductive History Patient is a Female of Child Bearing Age (11 -55 yrs old): Yes Last Menstrual Period: 04/07/18 Patient : No - Smoking Cessation Smoking history: Current every day smoker Have you smoked in the past 12 months: Yes Aproximately how many cigarettes per day: 10 Cigars Per Day: 0 Hx Chewing Tobacco Use: No Initiated information on smoking cessation: Yes 'Breaking Loose' booklet given: 08/03/18 - Substance & Tx. History Hx Alcohol Use: Yes Hx Substance Use: Yes Substance Use Type: Alcohol, Cocaine, Heroin, Tranquilizers Hx Substance Use Treatment: Yes ([facility] 06/28/18 to 07/01/18) - Substances Abused Alcohol Route: Oral Frequency: Daily Amount used: 1pint of vodka/2 of 40 ozs of beer Age of first use: 16 Date of Last Use: 08/03/18 Cocaine Route: Injection Frequency: Daily Amount used: 50$ Age of first use: 38 Date of Last Use: 08/03/18 Benzodiazepine (Klonopin) Route: Oral Frequency: 3-6 times per week Amount used: 4 mgs Age of first use: 38 Date of Last Use: 08/01/18 Heroin Route: Injection Frequency: Daily Amount used: 10 bags to 15 bags Age of first use: 38 Date of Last Use: 08/03/18 Family Disease History - Family Disease History Family Disease History: Other: Father (does not know), Mother (living, healthy) , Brother (six - living - healthy), Sister (two - living- healthy), Daughter ( three ages 31,18, 16 - healthy) Admission Physical Exam [facility] - Vital Signs Vital Signs: Vital Signs - 24 hr 08/03/18 10:14 Temperature 100.2 F H Pulse Rate 84 Respiratory 18 Rate Blood Pressure 127/69 - Physical General Appearance: Yes: Moderate Distress, Tremorous, Irritable, Sweating, Anxious HEENTM: Yes: Normal ENT Inspection, SAMANTHA, Pharynx Normal, Other (stye of right upper eyelid) Respiratory: Yes: Lungs Clear, Normal Breath Sounds, No Respiratory Distress Neck: Yes: Within Normal Limits, Supple, Trachea in good position, Other (scar of neck posterior) Breast: Yes: Breast Exam Deferred Cardiology: Yes: Within Normal Limits Abdominal: Yes: Within Normal Limits, Normal Bowel Sounds, Soft Genitourinary: Yes: Within Normal Limits Back: Yes: Muscle Spasm Musculoskeletal: Yes: full range of Motion, Back pain, Muscle Pain Extremities: Yes: Tremors Neurological: Yes: production line operator II-XII NML intact, Fully Oriented, Alert, Motor Strength 5/5 Integumentary: Yes: Dry Lymphatic: Yes: Within Normal Limits - Diagnostic (1) Alcohol dependence with uncomplicated withdrawal Current Visit: No Status: Acute (2) Benzodiazepine abuse Current Visit: Yes Status: Acute (3) Cocaine dependence, uncomplicated Current Visit: No Status: Chronic (4) Acute bronchitis Current Visit: Yes Status: Acute (5) Methadone maintenance therapy patient Current Visit: No Status: Chronic (6) Nicotine dependence Current Visit: No Status: Chronic Qualifiers: Nicotine product type: cigarettes Substance use status: uncomplicated Qualified Code(s): F17.210 - Nicotine dependence, cigarettes, uncomplicated (7) Heroin abuse Current Visit: Yes Status: Acute (8) Weight loss Current Visit: Yes Status: Acute Cleared for Admission [facility] - Detox or Rehab [facility] Level of Care: Medically Managed Detox Regimen/Protocol: Valium S Breath Alcohol Content Breath Alcohol Content: 0.024 Urine Pregancy Test - Result Urine Test Results: Negative- NO Line Present Urine Drug Screen - Results Drug Screen Negative: No Urine Drug Screen Results: KEITH-Cocaine, OPI-Opiates, BZO-Benzodiazepines, OXY- Oxycodone, FEN-Fentanyl
[2018-08-03] MEDS ORDERED: NICOTINE POLACRILEX 2 MG GUM BUC PRN (11:42)
[2018-08-03] MEDS ORDERED: MAG HYDROX/AL HYDROX/SIMETH 30 ML UNIT-DOSE CUP PO PRN (11:42)
[2018-08-03] MEDS ORDERED: diazePAM 5 MG TABLET PO PRN (11:42)
[2018-08-03] MEDS ORDERED: IBUPROFEN 400 MG TABLET (FP) PO PRN (11:42)
[2018-08-03] MEDS ORDERED: ACETAMINOPHEN 325 MG TABLET (FP) PO PRN (11:42)
[2018-08-03] MEDS ORDERED: P-EPHED 60MG/TRIPROLIDI 2.5MG TABLET PO PRN (11:42)
[2018-08-03] MEDS ORDERED: MENTHOL/PHENOL 1 EACH UD MM PRN (11:42)
[2018-08-03] MEDS ORDERED: LOPERAMIDE HCL 2 MG CAPSULE PO PRN (11:42)
[2018-08-03] MEDS ORDERED: MAGNESIUM HYDROX 2400MG/30ML ORAL SUSPENSION 30 ML CUP PO PRN (11:42)
[2018-08-03] MEDS ORDERED: diazePAM 5 MG TABLET PO ONE (11:42)
[2018-08-03] MEDS ORDERED: hydrOXYzine PAMOATE 25 MG CAPSULE (FP) PO PRN (11:42)
[2018-08-03] MEDS ORDERED: MAGNESIUM CITRATE 300 ML BOTTLE PO PRN (11:42)
[2018-08-03] MEDS: diazePAM 5 MG TABLET PO SCH ×2 (13:19→22:27)
[2018-08-03] MEDS: THIAMINE HCL 100 MG TABLET (FP) PO SCH (22:26)
[2018-08-03] MEDS: guaiFENesin/D-METHORPHAN HB 10 ML UNIT-DOSE CUPS PO PRN (22:29)
[2018-08-04] MEDS: diazePAM 5 MG TABLET PO SCH ×3 (05:43→22:09)
[2018-08-04] MEDS: guaiFENesin/D-METHORPHAN HB 10 ML UNIT-DOSE CUPS PO PRN (05:44)
[2018-08-04] MEDS: METHADONE HCL 40 MG DISPERSABLE TABLET PO SCH (08:32)
[2018-08-04 10:04] LABS: HEMATOCRIT 36.2 % (32.4-45.2); HEMOGLOBIN 11.9 GM/dL (10.7-15.3); MCH 28.3 pg (25.7-33.7); MCHC 32.8 g/dl (32.0-36.0); MEAN CELL VOLUME 86.4 fl (80-96); PLATELET COUNT 162 K/MM3 (134-434); RBC 4.19 M/mm3 (3.60-5.2); RDW 15.7 % (11.6-15.6); WHITE BLOOD COUNT 3.4 K/mm3 (4.0-10.0)
[2018-08-04 10:07] LABS: URINE APPEARANCE SLCLOUDY; URINE BILIRUBIN NEGATIVE (<2.0 mg/dL); URINE COLOR LTYELLOW; URINE GLUCOSE (UA) NEGATIVE (NEGATIVE); URINE KETONE NEGATIVE (NEGATIVE); URINE LEUK ESTERASE NEGATIVE (NEGATIVE); URINE NITRITE NEGATIVE (NEGATIVE); URINE PROTEIN NEGATIVE (NEGATIVE); URINE UROBILINOGEN NEGATIVE mg/dL (0.2-1.0)
[2018-08-04] MEDS: PRENATAL VITAMINS W/ FOLIC ACID TABLET (FP) PO SCH (10:15)
[2018-08-04 10:26] LABS: EPI CELLS RARE /HPF (FEW); URINE BACTERIA RARE /hpf (NONE SEEN); URINE MUCUS RARE
--- NOTE | 2018-08-04 10:30 | PN ---
S CIWA - CIWA Score Nausea/Vomitin-No Nausea/No Vomiting Muscle Tremors: 3 Anxiety: 3 Agitation: 3 Paroxysmal Sweats: 1-Minimal Palms Moist Orientation: 1-Uncertain about Date Tacttile Disturbances: 0-None Auditory Disturbances: 0-None Visual Disturbances: 0-None Headache: 1-Very Mild CIWA-Ar Total Score: 12 S Progress Note (SOAP) Subjective: anxiousness restlessness tremor sweating Objective: 08/04/18 10:30 Vital Signs Temperature 98.2 F 08/04/18 09:06 Pulse Rate 69 08/04/18 09:06 Respiratory Rate 17 08/04/18 09:06 Blood Pressure 92/62 08/04/18 09:06 O2 Sat by Pulse Oximetry (%) Laboratory Last Values WBC 3.4 K/mm3 (4.0-10.0) L 08/04/18 07:00 RBC 4.19 M/mm3 (3.60-5.2) 08/04/18 07:00 Hgb 11.9 GM/dL (10.7-15.3) 08/04/18 07:00 Hct 36.2 % (32.4-45.2) 08/04/18 07:00 MCV 86.4 fl (80-96) 08/04/18 07:00 MCH 28.3 pg (25.7-33.7) 08/04/18 07:00 MCHC 32.8 g/dl (32.0-36.0) 08/04/18 07:00 RDW 15.7 % (11.6-15.6) H 08/04/18 07:00 Plt Count 162 K/MM3 (134-434) D 08/04/18 07:00 MPV 9.0 fl (7.5-11.1) 08/04/18 07:00 Urine Color Ltyellow 08/04/18 07:00 Urine Appearance Slcloudy 08/04/18 07:00 Urine pH 6.0 (5.0-8.0) 08/04/18 07:00 Ur Specific [place] 1.010 (1.010-1.035) 08/04/18 07:00 Urine Protein Negative (NEGATIVE) 08/04/18 07:00 Urine Glucose (UA) Negative (NEGATIVE) 08/04/18 07:00 Urine Ketones Negative (NEGATIVE) 08/04/18 07:00 Urine Blood 2+ (NEGATIVE) H 08/04/18 07:00 Urine Nitrite Negative (NEGATIVE) 08/04/18 07:00 Urine Bilirubin Negative (<2.0 mg/dL) 08/04/18 07:00 Urine Urobilinogen Negative mg/dL (0.2-1.0) 08/04/18 07:00 Ur Leukocyte Esterase Negative (NEGATIVE) 08/04/18 07:00 Urine WBC (Auto) 2 /hpf (3-5) 08/04/18 07:00 Urine RBC (Auto) 1 /hpf (0-3) 08/04/18 07:00 Ur Epithelial Cells Rare /HPF (FEW) 08/04/18 07:00 Urine Bacteria Rare /hpf (NONE SEEN) 08/04/18 07:00 Urine Mucus Rare 08/04/18 07:00 lab noted Assessment: 08/04/18 10:32 withdrawal sx Plan: continue detox
[2018-08-04 10:34] LABS: ALBUMIN 3.2 g/dl (3.4-5.0); ALK PHOS 75 U/L (45-117); ANION GAP 6 MMOL/L (8-16); BILIRUBIN,TOTAL 0.2 mg/dL (0.2-1); BLOOD UREA NITROGEN 13 mg/dL (7-18); CALCIUM 8.3 mg/dL (8.5-10.1); CHLORIDE 106 mmol/L (98-107); CO2 29 mmol/L (21-32); CREATININE 0.8 mg/dL (0.55-1.3); GLUCOSE,RANDOM 102 mg/dL (74-106); POTASSIUM 4.1 mmol/L (3.5-5.1); SGOT/AST 21 U/L (15-37); SGPT/ALT 30 U/L (13-61); SODIUM 140 mmol/L (136-145); TOT PROT 6.4 g/dl (6.4-8.2)
[2018-08-04] MEDS: MELATONIN 5 MG TABLETS PO PRN (22:09)
[2018-08-04] MEDS: THIAMINE HCL 100 MG TABLET (FP) PO SCH (22:09)
[2018-08-05] MEDS: METHADONE HCL 40 MG DISPERSABLE TABLET PO SCH (05:52)
[2018-08-05] MEDS: PRENATAL VITAMINS W/ FOLIC ACID TABLET (FP) PO SCH (10:03)
[2018-08-05] MEDS: diazePAM 5 MG TABLET PO SCH ×2 (10:04→22:05)
[2018-08-05] MEDS ORDERED: AMOX TR/POT CLAV 500MG/125MG TABLETS (FP) PO ONE (11:20)
[2018-08-05] MEDS ORDERED: LIDOCAINE 5% TOPICAL PATCH TP ONE (11:20)
--- NOTE | 2018-08-05 11:49 | PN ---
[facility] CIWA - CIWA Score Nausea/Vomitin-No Nausea/No Vomiting Muscle Tremors: 3 Anxiety: 3 Agitation: 3 Paroxysmal Sweats: 3 Orientation: 0-Oriented Tacttile Disturbances: 0-None Auditory Disturbances: 0-None Visual Disturbances: 0-None Headache: 0-None Present CIWA-Ar Total Score: 12 S Progress Note (SOAP) Subjective: yellowish/greenish phlegm when I cough low back sweats irritable Objective: 08/05/18 11:48 Vital Signs Temperature 98.1 F 08/05/18 09:25 Pulse Rate 69 08/05/18 09:25 Respiratory Rate 18 08/05/18 09:25 Blood Pressure 103/51 L 08/05/18 09:25 O2 Sat by Pulse Oximetry (%) Laboratory Tests 08/04/18 08/04/18 08/04/18 07:00 07:00 07:00 WBC 3.4 L RBC 4.19 Hgb 11.9 Hct 36.2 MCV 86.4 MCH 28.3 MCHC 32.8 RDW 15.7 H Plt Count 162 D MPV 9.0 Sodium 140 Potassium 4.1 Chloride 106 Carbon Dioxide 29 Anion Gap 6 L BUN 13 Creatinine 0.8 Creat Clearance w eGFR > 60 Random Glucose 102 Calcium 8.3 L Total Bilirubin 0.2 AST 21 ALT 30 Alkaline Phosphatase 75 Total Protein 6.4 Albumin 3.2 L Urine Color Urine Appearance Urine pH Ur Specific [place] Urine Protein Urine Glucose (UA) Urine Ketones Urine Blood Urine Nitrite Urine Bilirubin Urine Urobilinogen Ur Leukocyte Esterase Urine WBC (Auto) Urine RBC (Auto) Ur Epithelial Cells Urine Bacteria Urine Mucus RPR Titer Nonreactive HIV 1&2 Antibody Screen HIV P24 Antigen 08/04/18 08/04/18 07:00 07:00 WBC RBC Hgb Hct MCV MCH MCHC RDW Plt Count MPV Sodium Potassium Chloride Carbon Dioxide Anion Gap BUN Creatinine Creat Clearance w eGFR Random Glucose Calcium Total Bilirubin AST ALT Alkaline Phosphatase Total Protein Albumin Urine Color Ltyellow Urine Appearance Slcloudy Urine pH 6.0 Ur Specific [place] 1.010 Urine Protein Negative Urine Glucose (UA) Negative Urine Ketones Negative Urine Blood 2+ H Urine Nitrite Negative Urine Bilirubin Negative Urine Urobilinogen Negative Ur Leukocyte Esterase Negative Urine WBC (Auto) 2 Urine RBC (Auto) 1 Ur Epithelial Cells Rare Urine Bacteria Rare Urine Mucus Rare RPR Titer HIV 1&2 Antibody Screen Negative HIV P24 Antigen Negative aaox3 ambulating no acute distress Assessment: 08/05/18 11:48 withdrawal sx Plan: continue detox increase fluids robitussin prn augmentin 500mg bid x 7 days
[2018-08-05] MEDS: AMOX TR/POT CLAV 500MG/125MG TABLETS (FP) PO SCH (17:13)
[2018-08-05] MEDS: THIAMINE HCL 100 MG TABLET (FP) PO SCH (22:05)
[2018-08-05] MEDS: MELATONIN 5 MG TABLETS PO PRN (22:05)
[2018-08-05] MEDS: LIDOCAINE PATCH REMOVAL MC SCH (22:06)
[2018-08-06] MEDS: METHADONE HCL 40 MG DISPERSABLE TABLET PO SCH (06:21)
[2018-08-06] MEDS: AMOX TR/POT CLAV 500MG/125MG TABLETS (FP) PO SCH ×2 (10:00→17:16)
[2018-08-06] MEDS ORDERED: LIDOCAINE 5% TOPICAL PATCH TP SCH (10:00)
--- NOTE | 2018-08-06 11:24 | PN ---
[facility] Progress Note (SOAP) Subjective: feeling better little anxiety Objective: 08/06/18 11:23 Vital Signs Temperature 98.1 F 08/06/18 09:41 Pulse Rate 78 08/06/18 09:41 Respiratory Rate 16 08/06/18 09:41 Blood Pressure 106/63 08/06/18 09:41 O2 Sat by Pulse Oximetry (%) aaox3 ambulating no acute distress Assessment: 08/06/18 11:24 mild withdrawal sx Plan: continue detox d/c in am
[2018-08-06] MEDS: PRENATAL VITAMINS W/ FOLIC ACID TABLET (FP) PO SCH (11:30)
[2018-08-06] MEDS: diazePAM 5 MG TABLET PO SCH ×2 (11:30→22:24)
[2018-08-06] MEDS: THIAMINE HCL 100 MG TABLET (FP) PO SCH (22:24)
[2018-08-06] MEDS: LIDOCAINE PATCH REMOVAL MC SCH (22:24)
[2018-08-07] MEDS: METHADONE HCL 40 MG DISPERSABLE TABLET PO SCH (06:07)
[2018-08-07 08:43] VITALS: BP 99/58; PULSE 78; TEMP 97.9
--- NOTE | 2018-08-07 09:13 | DS ---
[facility] Detox Discharge Summary Admission Date: 08/03/18 Discharge Date: 08/07/18 - History Present History: Alcohol Dependence, Cocaine Dependence, Opioid Dependence, Sedative Dependence, MMTP - Physical Exam Results Vital Signs: Vital Signs Temperature 97.9 F 08/07/18 08:42 Pulse Rate 78 08/07/18 08:42 Respiratory Rate 16 08/07/18 08:42 Blood Pressure 99/58 L 08/07/18 08:42 O2 Sat by Pulse Oximetry (%) - Treatment Hospital Course: Detox Protocol Followed, Detoxed Safely, Responded well, Discharged Condition Good, Rehab Referral Accepted - Medication Discharge Medications: Ambulatory Orders Methadone [Dolophine -] 80 mg PO DAILY@0600 08/04/18 Amox-Tr/K Cl [Augmentin 500-125mg Tablet -] 1 tab PO BID@0800,1730 #10 tablet - Diagnosis (1) Acute bronchitis Status: Acute Qualifiers: Bronchitis organism: unspecified organism Qualified Code(s): J20.9 - Acute bronchitis, unspecified (2) Weight loss Status: Acute (3) Alcohol dependence with uncomplicated withdrawal Status: Chronic (4) Opioid dependence with withdrawal Status: Chronic (5) Cocaine dependence, uncomplicated Status: Chronic (6) Depression Status: Chronic Qualifiers: Depression Type: unspecified Qualified Code(s): F32.9 - Major depressive disorder, single episode, unspecified (7) History of posttraumatic stress disorder (PTSD) Status: Chronic (8) Methadone maintenance therapy patient Status: Chronic (9) Nicotine dependence Status: Chronic Qualifiers: Nicotine product type: cigarettes Substance use status: uncomplicated Qualified Code(s): F17.210 - Nicotine dependence, cigarettes, uncomplicated - AMA Did Patient Leave Against Medical Advice: No (referred to [facility] in patient rehab)
[2018-08-07] MEDS: PRENATAL VITAMINS W/ FOLIC ACID TABLET (FP) PO SCH (09:18)
[2018-08-07] MEDS: AMOX TR/POT CLAV 500MG/125MG TABLETS (FP) PO SCH (09:18)
[2018-08-07] MEDS ORDERED: diazePAM 5 MG TABLET PO SCH (10:00)
== END 2018-08-07 09:51 | disposition home or self-care (01) | DRG 773 ==
LOC: YASAS 09:50 → UNDOADMIN 12:35 → Y3N 12:35 → Y6N 08-04 15:17
PROVIDERS: ADMIT Neuromusculoskeletal Medicine & OMM; ATTEND Neuromusculoskeletal Medicine & OMM
PROC: HZ2ZZZZ Detoxification Services for Substance Abuse Treatment (ICD-10-PCS; principal; 2018-08-03)
DX: F11.23 Opioid dependence with withdrawal (principal); F10.230 Alcohol dependence with withdrawal, uncomplicated; F14.20 Cocaine dependence, uncomplicated; F13.10 Sedative, hypnotic or anxiolytic abuse, uncomplicated; F17.210 Nicotine dependence, cigarettes, uncomplicated; F32.9 Major depressive disorder, single episode, unspecified; J20.9 Acute bronchitis, unspecified; H00.011 Hordeolum externum right upper eyelid
CPT/HCPCS: 36415; 80053; 81003; 81015; 85027; 86593; 87389

== ENCOUNTER 2018-12-30 16:19 | Inpatient (IN) | payer OTHER ==
[2018-12-30 18:35] VITALS: BMI 24.7
--- NOTE | 2018-12-30 21:15 | HP ---
CIWA Score Nausea/Vomitin-Mild Nausea/No Vomiting Muscle Tremors: 4-Moderate,w/Arms Extend Anxiety: 4-Mod. Anxious/Guarded Agitation: 3 Paroxysmal Sweats: 2 Orientation: 0-Oriented Tacttile Disturbances: 0-None Auditory Disturbances: 0-None Visual Disturbances: 0-None Headache: 3-Moderate CIWA-Ar Total Score: 17 - Admission Criteria OASAS Guidelines: Admission for Medically Managed Detox: Requires at least one of the followin. CIWA greater than 12 2. Seizures within the past 24 hours 3. Delirium tremens within the past 24 hours 4. Hallucinations within the past 24 hours 5. Acute intervention needed for co occurring medical disorder 6. Acute intervention needed for co occurring psychiatric disorder 7. Severe withdrawal that cannot be handled at a lower level of care (continued vomiting, continued diarrhea, abnormal vital signs) requiring intravenous medication and/or fluids 8. Admission ROS [facility] - [facility] Chief Complaint: Alcohol withdrawal symptoms, on Methadone therapy Allergies/Adverse Reactions: Allergies Allergy/AdvReac Type Severity Reaction Status Date / Time No Known Allergies Allergy Verified 12/30/18 18:26 History of Present Illness: 48 years old male with 32 years of alcohol dependence is seeking admission to detox. Patient has been in previous detox, last at [facility]. She has history of heart murmur and depression. Patient reports that she is homeless and denies suicidal ideation at this time. Patient is on Methadone 90mg tablet oral daily with [facility]. dose is yet to be confirmed by the nurse. - Ebola screening Have you traveled outside of the country in the last 21 days: No Have you had contact with anyone from an Ebola affected area: No Do you have a fever: No - Review of Systems Constitutional: Chills, Malaise, Night Sweats, Changes in sleep, Weakness EENT: reports: Sinus Pressure Respiratory: reports: No Symptoms reported Cardiac: reports: No Symptoms Reported GI: reports: Nausea, Poor Appetite, Poor Fluid Intake, Abdominal cramping : reports: No Symptoms Reported Musculoskeletal: reports: Back Pain Integumentary: reports: Dryness, Flushing Neuro: reports: Tremors Endocrine: reports: No Symptoms Reported Hematology: reports: No Symptoms Reported Psychiatric: reports: Anxious Other Systems: Reviewed and Negative Patient History - Patient Medical History Hx Anemia: No Hx Asthma: No Hx Chronic Obstructive Pulmonary Disease (COPD): No Hx Cancer: No Hx Cardiac Disorders: Yes (HEART MURMUR - Not on mediation) Hx Congestive Heart Failure: No Hx Hypertension: No Hx Hypercholesterolemia: No Hx Pacemaker: No HX Cerebrovascular Accident: No Hx Seizures: No Hx Dementia: No Hx Diabetes: No Hx Gastrointestinal Disorders: No Hx Liver Disease: No Hx Genitourinary Disorders: No Hx Sexually Transmitted Disorders: No Hx Renal Disease (ESRD): No Hx Thyroid Disease: No Hx Human Immunodeficiency Virus (HIV): No (Negative 2017) Hx Hepatitis C: No Hx Depression: Yes (hx being hospitalized 2009, Not on medication) Hx Suicide Attempt: No (Denies suicide attempt/suicidal ideation at this time) Hx Bipolar Disorder: No Hx Schizophrenia: No - Patient Surgical History Past Surgical History: Yes Hx Neurologic Surgery: No Hx Cataract Extraction: No Hx Cardiac Surgery: No Hx Lung Surgery: No Hx Breast Surgery: No Hx Breast Biopsy: No Hx Abdominal Surgery: No Hx Appendectomy: No Hx Cholecystectomy: No Hx Genitourinary Surgery: No Hx Section: Yes (1986, 2001) Hx Orthopedic Surgery: Yes (C4-5 fusion - 2007) Anesthesia Reaction: No - PPD History Previous Implant?: Yes Documented Results: Negative w/proof Implanted On Prior R Admission?: Yes Date: 05/25/18 Results: 0 mm PPD to be Administered?: No - Reproductive History Patient is a Female of Child Bearing Age (11 -55 yrs old): Yes Last Menstrual Period: 12/12/18 Patient : No - Smoking Cessation Smoking history: Current every day smoker Have you smoked in the past 12 months: Yes Aproximately how many cigarettes per day: 10 Cigars Per Day: 0 Hx Chewing Tobacco Use: No Initiated information on smoking cessation: Yes 'Breaking Loose' booklet given: 12/30/18 - Substance & Tx. History Hx Alcohol Use: No Hx Substance Use: Yes Substance Use Type: Cocaine, Heroin, Opiates Hx Substance Use Treatment: Yes ([facility] [place]) - Substances abused Cocaine Substance route: Injection Frequency: Daily Amount used: 100 dollars Age of first use: 40 Date of last use: 12/30/18 Alcohol Substance route: Oral Frequency: Daily Amount used: 1 quart Age of first use: 16 Date of last use: 12/30/18 Alprazolam (Xanax) Substance route: Oral Frequency: Daily Amount used: 2 mg Age of first use: 40 Date of last use: 12/30/18 Family Disease History - Family Disease History Family Disease History: Other: Father (does not know), Mother (living, healthy) , Brother (six - living - healthy), Sister (two - living- healthy), Daughter ( three ages 31,18, 16 - healthy) Admission Physical Exam [facility] - Vital Signs Vital Signs: Vital Signs - 24 hr 12/30/18 18:25 Temperature 99.8 F H Pulse Rate 76 Respiratory 20 Rate Blood Pressure 87/56 L - Physical General Appearance: Yes: Moderate Distress, Tremorous, Sweating, Anxious HEENTM: Yes: Within Normal Limits, Normal Voice, SAMANTHA Respiratory: Yes: Lungs Clear, Normal Breath Sounds, No Respiratory Distress Neck: Yes: Supple Breast: Yes: Breast Exam Deferred Cardiology: Yes: Murmur Abdominal: Yes: Normal Bowel Sounds, Soft Genitourinary: Yes: Within Normal Limits Back: Yes: Normal Inspection Musculoskeletal: Yes: Within Normal Limits Extremities: Yes: Tremors Neurological: Yes: Within Normal Limits, Alert Integumentary: Yes: Warm Lymphatic: Yes: Within Normal Limits - Diagnostic (1) Heart murmur Current Visit: Yes Status: Chronic (2) Cocaine dependence, uncomplicated Current Visit: Yes Status: Chronic (3) Depression Current Visit: Yes Status: Chronic Qualifiers: Depression Type: unspecified Qualified Code(s): F32.9 - Major depressive disorder, single episode, unspecified (4) Methadone maintenance therapy patient Current Visit: No Status: Chronic (5) Nicotine dependence Current Visit: No Status: Chronic Qualifiers: Nicotine product type: cigarettes Substance use status: uncomplicated Qualified Code(s): F17.210 - Nicotine dependence, cigarettes, uncomplicated (6) Opioid dependence with withdrawal Current Visit: No Status: Chronic Cleared for Admission [facility] - Detox or Rehab [facility] Level of Care: Medically Managed Detox Regimen/Protocol: Librium Breathalyzer - Breathalyzer Breathalyzer: 0 Urine Drug Screen - Test Device Lot number: [id number] Expiration date: 08/28/20 - Control Is test valid?: Yes - Results Drug screen NEGATIVE: No Urine drug screen results: KEITH-Cocaine, FEN-Fentanyl, MOP-Opiates, MTD-Methadone Inpatient Rehab Admission - Rehab Decision to Admit Inpatient rehab admission?: No
[2018-12-30] MEDS ORDERED: hydrOXYzine PAMOATE 25 MG CAPSULE (FP) PO PRN (21:23)
[2018-12-30] MEDS ORDERED: BISMUTH SUBSALICYLATE 524 MG/30 ML UD PO PRN (21:23)
[2018-12-30] MEDS ORDERED: IBUPROFEN 400 MG TABLET (FP) PO PRN (21:23)
[2018-12-30] MEDS ORDERED: MENTHOL/PHENOL 1 EACH UD MM PRN (21:23)
[2018-12-30] MEDS ORDERED: MAGNESIUM CITRATE 300 ML BOTTLE PO PRN (21:23)
[2018-12-30] MEDS ORDERED: ACETAMINOPHEN 325 MG TABLET (FP) PO PRN ×2 (21:23)
[2018-12-30] MEDS ORDERED: MAGNESIUM HYDROX 2400MG/30ML ORAL SUSPENSION 30 ML CUP PO PRN (21:23)
[2018-12-30] MEDS ORDERED: chlordiazePOXIDE HCL 25 MG CAPSULE PO PRN (21:23)
[2018-12-30] MEDS ORDERED: MAG HYDROX/AL HYDROX/SIMETH 30 ML UNIT-DOSE CUP PO PRN (21:23)
[2018-12-30] MEDS ORDERED: METHOCARBAMOL 500 MG TABLET PO PRN (21:23)
[2018-12-30] MEDS: chlordiazePOXIDE HCL 25 MG CAPSULE PO SCH (22:31)
[2018-12-30] MEDS: THIAMINE HCL 100 MG TABLET (FP) PO SCH (22:31)
[2018-12-31] MEDS: chlordiazePOXIDE HCL 25 MG CAPSULE PO SCH ×4 (05:37→22:27)
[2018-12-31] MEDS ORDERED: METHADONE HCL 10 MG TABLET PO SCH (08:45)
[2018-12-31 10:11] LABS: HEMATOCRIT 38.1 % (32.4-45.2); HEMOGLOBIN 12.2 GM/dL (10.7-15.3); MCH 28.2 pg (25.7-33.7); MEAN PLT VOLUME 9.3 fl (7.5-11.1); PLATELET COUNT 189 K/MM3 (134-434); RBC 4.32 M/mm3 (3.60-5.2); RDW 15.4 % (11.6-15.6)
[2018-12-31 10:13] LABS: ALBUMIN 3.1 g/dl (3.4-5.0); BILIRUBIN,TOTAL 0.1 mg/dL (0.2-1); BLOOD UREA NITROGEN 13.6 mg/dL (7-18); CALCIUM 8.2 mg/dL (8.5-10.1); CREATININE 0.9 mg/dL (0.55-1.3); POTASSIUM 3.9 mmol/L (3.5-5.1); TOT PROT 6.2 g/dl (6.4-8.2)
[2018-12-31] MEDS ORDERED: METHADONE HCL 10 MG TABLET ONE (10:24)
[2018-12-31] MEDS ORDERED: METHADONE HCL 40 MG DISPERSABLE TABLET ONE (10:24)
[2018-12-31] MEDS: METHADONE 80 MG, METHADONE 10 MG PO SCH (10:25)
[2018-12-31] MEDS: PRENATAL VITAMINS W/ FOLIC ACID TABLET (FP) PO SCH (10:26)
--- NOTE | 2018-12-31 16:53 | PN ---
S CIWA - CIWA Score Nausea/Vomitin-No Nausea/No Vomiting Muscle Tremors: 3 Anxiety: 3 Agitation: 0-Normal Activity Paroxysmal Sweats: 3 Orientation: 0-Oriented Tacttile Disturbances: 0-None Auditory Disturbances: 2-Mild Harshness/Frighten Visual Disturbances: 2-Mild Sensitivity Headache: 0-None Present CIWA-Ar Total Score: 13 [facility] Progress Note (SOAP) Subjective: Tremors, Sweating, Body Aches, Interrupted sleep. Objective: PATIENT A & O X 3, OBSERVED AMBULATING ON UNIT UNASSISTED. IN NO ACUTE DISTRESS. 12/31/18 16:52 Vital Signs Temperature 96.8 F L 12/31/18 13:46 Pulse Rate 69 12/31/18 13:46 Respiratory Rate 18 12/31/18 13:46 Blood Pressure 109/61 12/31/18 13:46 O2 Sat by Pulse Oximetry (%) Laboratory Tests 12/30/18 12/31/18 12/31/18 20:54 07:50 07:50 WBC 5.0 RBC 4.32 Hgb 12.2 Hct 38.1 MCV 88.0 MCH 28.2 MCHC 32.0 RDW 15.4 Plt Count 189 MPV 9.3 Sodium 142 Potassium 3.9 Chloride 109 H Carbon Dioxide 29 Anion Gap 5 L BUN 13.6 Creatinine 0.9 Est GFR (CKD-EPI)AfAm 86.41 Est GFR (CKD-EPI)NonAf 74.55 Random Glucose 93 Calcium 8.2 L Total Bilirubin 0.1 L AST 21 ALT 24 Alkaline Phosphatase 84 Total Protein 6.2 L Albumin 3.1 L POC Urine HCG, Qual Negative RPR Titer 12/31/18 07:50 WBC RBC Hgb Hct MCV MCH MCHC RDW Plt Count MPV Sodium Potassium Chloride Carbon Dioxide Anion Gap BUN Creatinine Est GFR (CKD-EPI)AfAm Est GFR (CKD-EPI)NonAf Random Glucose Calcium Total Bilirubin AST ALT Alkaline Phosphatase Total Protein Albumin POC Urine HCG, Qual RPR Titer Nonreactive LABS NOTED. Assessment: 12/31/18 16:52 WITHDRAWAL SYMPTOMS. Plan: CONTINUE DETOX. INCREASE DAILY PO WATER INTAKE.
[2018-12-31] MEDS: MELATONIN 5 MG TABLETS PO PRN (22:27)
[2018-12-31] MEDS: THIAMINE HCL 100 MG TABLET (FP) PO SCH (22:27)
[2019-01-01] MEDS ORDERED: METHADONE HCL 10 MG TABLET ONE (04:47)
[2019-01-01] MEDS ORDERED: METHADONE HCL 40 MG DISPERSABLE TABLET ONE (04:47)
[2019-01-01] MEDS: METHADONE 80 MG, METHADONE 10 MG PO SCH (06:33)
[2019-01-01] MEDS: chlordiazePOXIDE HCL 25 MG CAPSULE PO SCH ×4 (06:33→22:25)
[2019-01-01] MEDS: PRENATAL VITAMINS W/ FOLIC ACID TABLET (FP) PO SCH (10:32)
--- NOTE | 2019-01-01 13:54 | PN ---
S CIWA - CIWA Score Nausea/Vomitin-No Nausea/No Vomiting Muscle Tremors: 3 Anxiety: 2 Agitation: 2 Paroxysmal Sweats: 1-Minimal Palms Moist Orientation: 0-Oriented Tacttile Disturbances: 1-Very Mild Itch/Numbness Auditory Disturbances: 0-None Visual Disturbances: 0-None Headache: 1-Very Mild CIWA-Ar Total Score: 10 S Progress Note (SOAP) Subjective: feeling better from alcohol withdrawal sx worries about living situation where near her methadone program Objective: 01/01/19 13:53 Vital Signs Temperature 98.2 F 01/01/19 13:51 Pulse Rate 68 01/01/19 13:51 Respiratory Rate 18 01/01/19 13:51 Blood Pressure 104/72 01/01/19 13:51 O2 Sat by Pulse Oximetry (%) Laboratory Last Values WBC 5.0 K/mm3 (4.0-10.0) 12/31/18 07:50 RBC 4.32 M/mm3 (3.60-5.2) 12/31/18 07:50 Hgb 12.2 GM/dL (10.7-15.3) 12/31/18 07:50 Hct 38.1 % (32.4-45.2) 12/31/18 07:50 MCV 88.0 fl (80-96) 12/31/18 07:50 MCH 28.2 pg (25.7-33.7) 12/31/18 07:50 MCHC 32.0 g/dl (32.0-36.0) 12/31/18 07:50 RDW 15.4 % (11.6-15.6) 12/31/18 07:50 Plt Count 189 K/MM3 (134-434) 12/31/18 07:50 MPV 9.3 fl (7.5-11.1) 12/31/18 07:50 Sodium 142 mmol/L (136-145) 12/31/18 07:50 Potassium 3.9 mmol/L (3.5-5.1) 12/31/18 07:50 Chloride 109 mmol/L (98-107) H 12/31/18 07:50 Carbon Dioxide 29 mmol/L (21-32) 12/31/18 07:50 Anion Gap 5 MMOL/L (8-16) L 12/31/18 07:50 BUN 13.6 mg/dL (7-18) 12/31/18 07:50 Creatinine 0.9 mg/dL (0.55-1.3) 12/31/18 07:50 Est GFR (CKD-EPI)AfAm 86.41 12/31/18 07:50 Est GFR (CKD-EPI)NonAf 74.55 12/31/18 07:50 Random Glucose 93 mg/dL (74-106) 12/31/18 07:50 Calcium 8.2 mg/dL (8.5-10.1) L 12/31/18 07:50 Total Bilirubin 0.1 mg/dL (0.2-1) L 12/31/18 07:50 AST 21 U/L (15-37) 12/31/18 07:50 ALT 24 U/L (13-61) 12/31/18 07:50 Alkaline Phosphatase 84 U/L (45-117) 12/31/18 07:50 Total Protein 6.2 g/dl (6.4-8.2) L 12/31/18 07:50 Albumin 3.1 g/dl (3.4-5.0) L 12/31/18 07:50 POC Urine HCG, Qual Negative 12/30/18 20:54 RPR Titer Nonreactive (NONREACTIVE) 12/31/18 07:50 lab noted Assessment: 01/01/19 13:54 alcohol and benzo withdrawal sx Plan: continue alcohol and benzo detox
[2019-01-01] MEDS: THIAMINE HCL 100 MG TABLET (FP) PO SCH (22:24)
[2019-01-01] MEDS: MELATONIN 5 MG TABLETS PO PRN (22:25)
[2019-01-02] MEDS ORDERED: chlordiazePOXIDE HCL 10 MG CAPSULE PO PRN
[2019-01-02] MEDS ORDERED: METHADONE HCL 10 MG TABLET ONE (04:48)
[2019-01-02] MEDS ORDERED: METHADONE HCL 40 MG DISPERSABLE TABLET ONE (04:48)
[2019-01-02] MEDS ORDERED: chlordiazePOXIDE HCL 10 MG CAPSULE PO SCH (05:00)
[2019-01-02] MEDS: METHADONE 80 MG, METHADONE 10 MG PO SCH (05:48)
[2019-01-02 07:15] VITALS: BP 86/55; PULSE 73; TEMP 97.8
--- NOTE | 2019-01-02 18:12 | PN ---
[facility] CIWA - CIWA Score Nausea/Vomitin-No Nausea/No Vomiting Muscle Tremors: None Anxiety: 0-No Anxiety, at Ease Agitation: 1-Slight > Activity Paroxysmal Sweats: No Perspiration Orientation: 0-Oriented Tacttile Disturbances: 0-None Auditory Disturbances: 0-None Visual Disturbances: 0-None Headache: 0-None Present CIWA-Ar Total Score: 1 [facility] Progress Note (SOAP) Subjective: Patient denies current Withdrawal / Detox symptoms and reports that he feels well overall at this time. Objective: PATIENT A & O X 3, OBSERVED AMBULATING ON UNIT UNASSISTED. IN NO ACUTE DISTRESS. 01/02/19 18:09 Vital Signs Temperature 97.8 F 01/02/19 07:14 Pulse Rate 73 01/02/19 07:14 Respiratory Rate 16 01/02/19 07:14 Blood Pressure 86/55 L 01/02/19 07:14 O2 Sat by Pulse Oximetry (%) Laboratory Tests 12/30/18 12/31/18 12/31/18 20:54 07:50 07:50 WBC 5.0 RBC 4.32 Hgb 12.2 Hct 38.1 MCV 88.0 MCH 28.2 MCHC 32.0 RDW 15.4 Plt Count 189 MPV 9.3 Sodium 142 Potassium 3.9 Chloride 109 H Carbon Dioxide 29 Anion Gap 5 L BUN 13.6 Creatinine 0.9 Est GFR (CKD-EPI)AfAm 86.41 Est GFR (CKD-EPI)NonAf 74.55 Random Glucose 93 Calcium 8.2 L Total Bilirubin 0.1 L AST 21 ALT 24 Alkaline Phosphatase 84 Total Protein 6.2 L Albumin 3.1 L POC Urine HCG, Qual Negative RPR Titer 12/31/18 07:50 WBC RBC Hgb Hct MCV MCH MCHC RDW Plt Count MPV Sodium Potassium Chloride Carbon Dioxide Anion Gap BUN Creatinine Est GFR (CKD-EPI)AfAm Est GFR (CKD-EPI)NonAf Random Glucose Calcium Total Bilirubin AST ALT Alkaline Phosphatase Total Protein Albumin POC Urine HCG, Qual RPR Titer Nonreactive LABS NOTED. Assessment: 01/02/19 18:10 COMPLETION OF DETOX REGIMEN. Plan: SINCE PATIENT DENIES CURRENT WITHDRAWAL / DETOX SYMPTOMS AND REPORTS THAT SHE FEELS WELL OVERALL, AT PATIENTS REQUEST, SHE WAS GRANTED AN EARLY DISCHARGE FROM DETOX UNIT TODAY SO THAT SHE MAY RETURN HOME AND TO WORK. PATIENT WILL RETURN TO [facility] ([place], [place]) FOR AFTERCARE.
--- NOTE | 2019-01-02 18:19 | DS ---
[facility] Detox Discharge Summary Admission Date: 12/30/18 Discharge Date: 01/02/19 - History Present History: Alcohol Dependence, Cocaine Dependence, Opioid Dependence, Sedative Dependence, MMTP Additional Comments: PATIENT DENIES CURRENT WITHDRAWAL / DETOX SYMPTOMS AND REPORTS THAT SHE FEELS WELL OVERALL AT TIME OF DISCHARGE FROM DETOX UNIT. PATIENT RETURNING HOME AND TO WORK. PATIENT WILL RETURN TO [facility] ([place], [place]), WHERE SHE WAS PREVIOUSLY A CLIENT, FOR AFTERCARE. PATIENT ALSO REFERRED TO [facility] FOR AFTERCARE. PATIENT WAS DISCHARGED FROM DETOX UNIT IN STABLE MEDICAL CONDITION. Pertinent Past History: History Of Heart Murmur, Depression, M.M.T[facility] Nicotine Dependence. - Physical Exam Results Vital Signs: Vital Signs Temperature 97.8 F 01/02/19 07:14 Pulse Rate 73 01/02/19 07:14 Respiratory Rate 16 01/02/19 07:14 Blood Pressure 86/55 L 01/02/19 07:14 O2 Sat by Pulse Oximetry (%) Pertinent Admission Physical Exam Findings: WITHDRAWAL SYMPTOMS. Laboratory Tests 12/30/18 12/31/18 12/31/18 20:54 07:50 07:50 WBC 5.0 RBC 4.32 Hgb 12.2 Hct 38.1 MCV 88.0 MCH 28.2 MCHC 32.0 RDW 15.4 Plt Count 189 MPV 9.3 Sodium 142 Potassium 3.9 Chloride 109 H Carbon Dioxide 29 Anion Gap 5 L BUN 13.6 Creatinine 0.9 Est GFR (CKD-EPI)AfAm 86.41 Est GFR (CKD-EPI)NonAf 74.55 Random Glucose 93 Calcium 8.2 L Total Bilirubin 0.1 L AST 21 ALT 24 Alkaline Phosphatase 84 Total Protein 6.2 L Albumin 3.1 L POC Urine HCG, Qual Negative RPR Titer 12/31/18 07:50 WBC RBC Hgb Hct MCV MCH MCHC RDW Plt Count MPV Sodium Potassium Chloride Carbon Dioxide Anion Gap BUN Creatinine Est GFR (CKD-EPI)AfAm Est GFR (CKD-EPI)NonAf Random Glucose Calcium Total Bilirubin AST ALT Alkaline Phosphatase Total Protein Albumin POC Urine HCG, Qual RPR Titer Nonreactive LABS NOTED. - Treatment Hospital Course: Detox Protocol Followed, Detoxed Safely, Responded well, Discharged Condition Good Patient has Accepted a Rehab Referral to: PT. RETURNING TO PREVIOUS [facility]. - Diagnosis (1) Cocaine dependence, uncomplicated Status: Chronic (2) Depression Status: Chronic Qualifiers: Depression Type: unspecified Qualified Code(s): F32.9 - Major depressive disorder, single episode, unspecified (3) Heart murmur Status: Chronic (4) Methadone maintenance therapy patient Status: Chronic (5) Nicotine dependence Status: Chronic Qualifiers: Nicotine product type: cigarettes Substance use status: uncomplicated Qualified Code(s): F17.210 - Nicotine dependence, cigarettes, uncomplicated (6) Sedative, hypnotic or anxiolytic dependence with withdrawal, uncomplicated Status: Acute (7) Alcohol dependence with uncomplicated withdrawal Status: Acute - AMA Did Patient Leave Against Medical Advice: No
[2019-01-03] MEDS ORDERED: chlordiazePOXIDE HCL 10 MG CAPSULE PO SCH (05:00)
[2019-01-04] MEDS ORDERED: chlordiazePOXIDE HCL 10 MG CAPSULE PO ONE (05:00)
== END 2019-01-02 09:13 | disposition home or self-care (01) | DRG 773 ==
LOC: YASAS 16:19 → Y3N 21:48
PROVIDERS: ADMIT Surgery; ATTEND Surgery
PROC: HZ2ZZZZ Detoxification Services for Substance Abuse Treatment (ICD-10-PCS; principal; 2018-12-30)
DX: F10.230 Alcohol dependence with withdrawal, uncomplicated (principal); F11.23 Opioid dependence with withdrawal; F13.230 Sedative, hypnotic or anxiolytic dependence with withdrawal, uncomplicated; F14.20 Cocaine dependence, uncomplicated; F17.210 Nicotine dependence, cigarettes, uncomplicated; F32.9 Major depressive disorder, single episode, unspecified; R01.1 Cardiac murmur, unspecified
CPT/HCPCS: 36415; 80053; 81025; 85027; 86593

== ENCOUNTER 2019-01-19 12:14 | Inpatient (IN) | payer OTHER ==
[2019-01-19 14:20] VITALS: BMI 24.2
--- NOTE | 2019-01-19 15:09 | HP ---
CIWA Score Nausea/Vomitin Muscle Tremors: 2 Anxiety: 2 Agitation: 1-Slight > Activity Paroxysmal Sweats: 3 Orientation: 0-Oriented Tacttile Disturbances: 2-Mild Itch/Numbness/Burn Auditory Disturbances: 0-None Visual Disturbances: 0-None Headache: 2-Mild CIWA-Ar Total Score: 15 - Admission Criteria OASAS Guidelines: Admission for Medically Managed Detox: Requires at least one of the followin. CIWA greater than 12 2. Seizures within the past 24 hours 3. Delirium tremens within the past 24 hours 4. Hallucinations within the past 24 hours 5. Acute intervention needed for co occurring medical disorder 6. Acute intervention needed for co occurring psychiatric disorder 7. Severe withdrawal that cannot be handled at a lower level of care (continued vomiting, continued diarrhea, abnormal vital signs) requiring intravenous medication and/or fluids 8. Patient presents the following: CIWA greater than 12 Admission Criteria Met: Admission criteria met Admission ROS [facility] Chief Complaint: I need to get clean , detox, go to rehab and then residential -prison. Allergies/Adverse Reactions: Allergies Allergy/AdvReac Type Severity Reaction Status Date / Time No Known Allergies Allergy Verified 01/19/19 14:12 History of Present Illness: 48 y/o f pt with h/o marijuana and alcohol use starting at age 16. Then at age 38 the pt began using percocet, heroin , xanax, and increased alcohol use. The pt then started using methadone at [facility] oyp x 1 year. Exam Limitations: No Limitations - Ebola screening Have you traveled outside of the country in the last 21 days: No Have you had contact with anyone from an Ebola affected area: No Have you been sick,other than usual withdrawal symptoms: No Do you have a fever: No - Review of Systems Constitutional: Malaise, Night Sweats, Changes in sleep, Unintentional Wgt. Loss (10 lbs x 2-3 months) EENT: reports: No Symptoms Reported Respiratory: reports: No Symptoms reported Cardiac: reports: Other (childhood murmur) GI: reports: Nausea : reports: No Symptoms Reported, Other (pt with whitish vaginal d/c and itch) Musculoskeletal: reports: Muscle Pain, Neck Pain Integumentary: reports: Dryness, Pruritus Neuro: reports: Headache, Numbness (legs), Tingling (hands) Endocrine: reports: No Symptoms Reported Hematology: reports: No Symptoms Reported, Other (h/o 5 transfusions in the past.) Psychiatric: reports: Orientated x3, Agitated, Anxious, Depressed Other Systems: Reviewed and Negative Patient History - Patient Medical History Hx Anemia: No Hx Asthma: No Hx Chronic Obstructive Pulmonary Disease (COPD): No Hx Cancer: No Hx Cardiac Disorders: Yes (HEART MURMUR - Not on medication since childhood) Hx Congestive Heart Failure: No Hx Hypertension: No Hx Hypercholesterolemia: No Hx Pacemaker: No HX Cerebrovascular Accident: No Hx Seizures: No Hx Dementia: No Hx Diabetes: No Hx Gastrointestinal Disorders: No Hx Liver Disease: No Hx Genitourinary Disorders: No Hx Sexually Transmitted Disorders: No Hx Renal Disease (ESRD): No Hx Thyroid Disease: No Hx Human Immunodeficiency Virus (HIV): No (Negative 2017) Hx Hepatitis C: No Hx Depression: Yes (hx being hospitalized 2009, Not on medication) Hx Suicide Attempt: No (Denies suicide attempt/suicidal ideation at this time) Hx Bipolar Disorder: No Hx Schizophrenia: No Other Medical History: h/o PTSD - Patient Surgical History Past Surgical History: Yes Hx Neurologic Surgery: No Hx Cataract Extraction: No Hx Cardiac Surgery: No Hx Lung Surgery: No Hx Breast Surgery: No Hx Breast Biopsy: No Hx Abdominal Surgery: No Hx Appendectomy: No Hx Cholecystectomy: No Hx Genitourinary Surgery: No Hx Section: Yes (1986, 2001) Hx Orthopedic Surgery: Yes (C4-5 fusion - 2007-2nd to trauma ) Hx Hysterectomy: No Anesthesia Reaction: No - PPD History Date: 05/25/18 Results: 0 mm - Reproductive History Patient is a Female of Child Bearing Age (11 -55 yrs old): Yes Last Menstrual Period: 12/12/18 Patient : No - Smoking Cessation Smoking history: Current every day smoker Have you smoked in the past 12 months: Yes Aproximately how many cigarettes per day: 10 Cigars Per Day: 0 Hx Chewing Tobacco Use: No Initiated information on smoking cessation: Yes 'Breaking Loose' booklet given: 01/19/19 - Substance & Tx. History Hx Alcohol Use: Yes Hx Substance Use: Yes Substance Use Type: Alcohol, Cocaine, Tranquilizers - Substances abused Cocaine Substance route: Injection Frequency: Daily Amount used: 100 dollars Age of first use: 40 Date of last use: 12/30/18 Alcohol Substance route: Oral Frequency: Daily Amount used: 2 quart Age of first use: 16 Date of last use: 01/19/19 Alprazolam (Xanax) Substance route: Oral Frequency: Daily Amount used: 2 mg ($50) Age of first use: 40 Date of last use: 01/19/19 Benzodiazepine (Klonopin) Frequency: 3-6 times per week Amount used: $50 Age of first use: 40 Date of last use: 01/19/19 Family Disease History - Family Disease History Family Disease History: Other: Father (does not know), Mother (living, healthy) , Brother (six - living - healthy), Sister (two - living- healthy), Daughter ( three ages 31,18, 16 - healthy) Admission Physical Exam S - Vital Signs Vital Signs: Vital Signs - 24 hr 01/19/19 14:01 Temperature 97.9 F Pulse Rate 61 Respiratory 16 Rate Blood Pressure 116/75 48 y/o thin f pt aox3 soft spoken appearing anxious in nad and cooperative with exam. - Physical General Appearance: Yes: Thin, Tremorous, Anxious HEENTM: Yes: EOMI, Hearing grossly Normal, Normal ENT Inspection Respiratory: Yes: Within Normal Limits, Lungs Clear, Normal Breath Sounds, No Respiratory Distress Neck: Yes: Other (well healed rt neck scar, well healed c/s scar) Breast: Yes: Breast Exam Deferred Cardiology: Yes: Regular Rhythm, Regular Rate, S1, S2, Systolic Murmur (07/06) Abdominal: Yes: Non Tender, Soft, Increased Bowel Sounds, Protuberent, Surgical Scar (well healed scar.) Genitourinary: Yes: Within Normal Limits Back: Yes: Decreased Range of Motion Musculoskeletal: Yes: Back pain, Muscle Pain Extremities: Yes: Tremors Neurological: Yes: bone drier II-XII NML intact, Fully Oriented, Alert, Motor Strength 5/5 Integumentary: Yes: Moist, Track Workman, Other (+ tattos) Lymphatic: Yes: Within Normal Limits - Addiitonal Findings: reza forearms - Diagnostic (1) Alcohol dependence with uncomplicated withdrawal Current Visit: Yes Status: Chronic (2) Sedative, hypnotic or anxiolytic dependence with withdrawal, uncomplicated Current Visit: Yes Status: Chronic (3) Cocaine dependence, uncomplicated Current Visit: Yes Status: Chronic (4) Heart murmur Current Visit: No Status: Chronic (5) History of posttraumatic stress disorder (PTSD) Current Visit: No Status: Chronic (6) Methadone maintenance therapy patient Current Visit: Yes Status: Chronic (7) Nicotine dependence Current Visit: Yes Status: Chronic Qualifiers: Nicotine product type: cigarettes Substance use status: uncomplicated Qualified Code(s): F17.210 - Nicotine dependence, cigarettes, uncomplicated Cleared for Admission [facility] - Detox or Rehab [facility] Level of Care: Medically Managed Detox Regimen/Protocol: Valium Breathalyzer - Breathalyzer Breathalyzer: 0 Urine Drug Screen - Test Device Lot number: [id number] Expiration date: 10/28/20 - Control Is test valid?: Yes - Results Drug screen NEGATIVE: No Urine drug screen results: THC-Marijuana, KEITH-Cocaine, FEN-Fentanyl, MOP-Opiates , MTD-Methadone, BAR-Barbiturates, BZO-Benzodiazepines Inpatient Rehab Admission - Rehab Decision to Admit Inpatient rehab admission?: Yes - Initial Determination Are CD services needed?: Yes Free of communicable disease: Yes Not in need of hospitalization: No - Rehab Admission Criteria Previous failed treatment: Yes Poor recovery environment: Yes Comorbidities: No Lacks judgement: No Patient is meeting Inpatient Rehab admission criteria:: Yes
[2019-01-19] MEDS ORDERED: ONDANSETRON *ODT* 4 MG TABLET SL PRN (15:31)
[2019-01-19] MEDS ORDERED: ACETAMINOPHEN 325 MG TABLET (FP) PO PRN ×2 (15:31)
[2019-01-19] MEDS ORDERED: MAGNESIUM CITRATE 300 ML BOTTLE PO PRN (15:31)
[2019-01-19] MEDS ORDERED: MAGNESIUM HYDROX 2400MG/30ML ORAL SUSPENSION 30 ML CUP PO PRN (15:31)
[2019-01-19] MEDS ORDERED: BISMUTH SUBSALICYLATE 524 MG/30 ML UD PO PRN (15:31)
[2019-01-19] MEDS ORDERED: IBUPROFEN 400 MG TABLET (FP) PO PRN (15:31)
[2019-01-19] MEDS ORDERED: MENTHOL/PHENOL 1 EACH UD MM PRN (15:31)
[2019-01-19] MEDS ORDERED: MAG HYDROX/AL HYDROX/SIMETH 30 ML UNIT-DOSE CUP PO PRN (15:31)
[2019-01-19] MEDS ORDERED: METHOCARBAMOL 500 MG TABLET PO PRN (15:31)
[2019-01-19] MEDS ORDERED: hydrOXYzine HCL 25 MG TABLET (FP) PO PRN (15:31)
[2019-01-19] MEDS ORDERED: NICOTINE POLACRILEX 4 MG GUM BUC PRN (15:31)
[2019-01-19] MEDS ORDERED: FLUCONAZOLE 50 MG TABLET PO ONE (16:30)
[2019-01-19] MEDS: diazePAM 5 MG TABLET PO PRN (17:01)
[2019-01-19] MEDS: THIAMINE HCL 100 MG TABLET (FP) PO SCH (21:34)
[2019-01-19] MEDS: MELATONIN 5 MG TABLETS PO PRN (21:35)
[2019-01-19] MEDS: diazePAM 5 MG TABLET PO SCH (21:35)
[2019-01-20] MEDS: diazePAM 5 MG TABLET PO SCH ×3 (05:15→22:08)
--- NOTE | 2019-01-20 10:26 | PN ---
S CIWA - CIWA Score Nausea/Vomitin-Mild Nausea/No Vomiting Muscle Tremors: 3 Anxiety: 2 Agitation: 2 Paroxysmal Sweats: 1-Minimal Palms Moist Orientation: 1-Uncertain about Date Tacttile Disturbances: 1-Very Mild Itch/Numbness Auditory Disturbances: 0-None Visual Disturbances: 0-None Headache: 2-Mild CIWA-Ar Total Score: 13 [facility] Progress Note (SOAP) Subjective: 48 years old male admitted on 01/19/19 for acute alcohol and benzo withdrawal sx management doing well with valium detox regimen feeling tired prefers resting on bed encourage the patient to discuss aftercare with staff Objective: 01/20/19 10:29 Vital Signs Temperature 98.7 F 01/20/19 09:34 Pulse Rate 64 01/20/19 09:34 Respiratory Rate 18 01/20/19 09:34 Blood Pressure 116/60 01/20/19 09:34 O2 Sat by Pulse Oximetry (%) Laboratory Last Values POC Urine HCG, Qual Negative 01/19/19 14:45 01/20/19 10:29 lab pending Assessment: 01/20/19 10:29 alcohol and benzo withdrawal sx Plan: continue benzo and alcohol detox
[2019-01-20] MEDS: PRENATAL VITAMINS W/ FOLIC ACID TABLET (FP) PO SCH (10:57)
[2019-01-20] MEDS: diazePAM 5 MG TABLET PO PRN (10:57)
[2019-01-20] MEDS: NICOTINE 14 MG/24 HOURS TOPICAL PATCH TD SCH (10:58)
[2019-01-20] MEDS ORDERED: METHADONE HCL 10 MG TABLET PO ONE (11:35)
[2019-01-20] MEDS ORDERED: METHADONE 80 MG, METHADONE 10 MG PO ONE (11:45)
[2019-01-20] MEDS ORDERED: METHADONE HCL 40 MG DISPERSABLE TABLET ONE (11:55)
[2019-01-20] MEDS ORDERED: METHADONE HCL 10 MG TABLET ONE (11:55)
[2019-01-20 12:17] LABS: HEMATOCRIT 41.1 % (32.4-45.2); HEMOGLOBIN 13.3 GM/dL (10.7-15.3); MCH 28.5 pg (25.7-33.7); MCHC 32.2 g/dl (32.0-36.0); MEAN CELL VOLUME 88.4 fl (80-96); MEAN PLT VOLUME 8.9 fl (7.5-11.1); PLATELET COUNT 232 K/MM3 (134-434); RBC 4.66 M/mm3 (3.60-5.2); RDW 14.7 % (11.6-15.6); WHITE BLOOD COUNT 5.1 K/mm3 (4.0-10.0)
[2019-01-20 12:32] LABS: ALBUMIN 3.3 g/dl (3.4-5.0); BILIRUBIN,TOTAL 0.1 mg/dL (0.2-1); BLOOD UREA NITROGEN 13.9 mg/dL (7-18); CALCIUM 8.5 mg/dL (8.5-10.1); CREATININE 0.7 mg/dL (0.55-1.3); POTASSIUM 4.3 mmol/L (3.5-5.1); TOT PROT 6.8 g/dl (6.4-8.2)
--- NOTE | 2019-01-20 18:20 | CONSULT ---
[facility] Psychiatric Consult - Data Date of interview: 01/20/19 Admission source: [facility] Identifying data: Patient is approached, at bedside, by this comic book writer for psychiatric evaluation (as requested by medical staff). Ms Lu declines. " I am tired and sleepy. Besides, I am leaving tomorrow. What is the point ? I need to rest." Nursing staff is informed.
[2019-01-20] MEDS: MELATONIN 5 MG TABLETS PO PRN (22:08)
[2019-01-20] MEDS: THIAMINE HCL 100 MG TABLET (FP) PO SCH (22:08)
[2019-01-21] MEDS ORDERED: METHADONE HCL 10 MG TABLET ONE (04:28)
[2019-01-21] MEDS ORDERED: METHADONE HCL 40 MG DISPERSABLE TABLET ONE (04:29)
[2019-01-21] MEDS ORDERED: METHADONE 80 MG, METHADONE 10 MG PO SCH (06:00)
[2019-01-21] MEDS ORDERED: METHADONE HCL 10 MG TABLET PO SCH (06:00)
[2019-01-21] MEDS ORDERED: diazePAM 5 MG TABLET PO SCH (06:00)
[2019-01-21] MEDS: NICOTINE 14 MG/24 HOURS TOPICAL PATCH TD SCH (10:34)
[2019-01-21] MEDS: PRENATAL VITAMINS W/ FOLIC ACID TABLET (FP) PO SCH (10:34)
[2019-01-21 13:13] VITALS: BP 133/79; PULSE 61; TEMP 98.3
--- NOTE | 2019-01-21 15:19 | DS ---
[facility] Detox Discharge Summary Admission Date: 01/19/19 Discharge Date: 01/21/19 - History Present History: Alcohol Dependence, Sedative Dependence Additional Comments: 48 years old male admitted on 01/19/19 for acute alcohol and benzo withdrawal sx management feeling better today prefers to be early discharged today to go to court and continue with methadone maintenance program patient is alert oriented x 3 steady gait tolerate food and fluid well speech clearly [id number] clear lung bilaterally denies headache denies dizziness no shortness of breathe Pertinent Past History: patient agrees to bring in medication list and lab report to methadone program for follow up - Physical Exam Results Vital Signs: Vital Signs Temperature 98.3 F 01/21/19 13:35 Pulse Rate 61 01/21/19 13:35 Respiratory Rate 18 01/21/19 13:35 Blood Pressure 133/79 01/21/19 13:35 O2 Sat by Pulse Oximetry (%) Pertinent Admission Physical Exam Findings: alcohol and benzo withdrawal sx Laboratory Last Values WBC 5.1 K/mm3 (4.0-10.0) 01/20/19 07:00 RBC 4.66 M/mm3 (3.60-5.2) 01/20/19 07:00 Hgb 13.3 GM/dL (10.7-15.3) 01/20/19 07:00 Hct 41.1 % (32.4-45.2) 01/20/19 07:00 MCV 88.4 fl (80-96) 01/20/19 07:00 MCH 28.5 pg (25.7-33.7) 01/20/19 07:00 MCHC 32.2 g/dl (32.0-36.0) 01/20/19 07:00 RDW 14.7 % (11.6-15.6) 01/20/19 07:00 Plt Count 232 K/MM3 (134-434) D 01/20/19 07:00 MPV 8.9 fl (7.5-11.1) 01/20/19 07:00 Sodium 142 mmol/L (136-145) 01/20/19 07:00 Potassium 4.3 mmol/L (3.5-5.1) 01/20/19 07:00 Chloride 108 mmol/L (98-107) H 01/20/19 07:00 Carbon Dioxide 30 mmol/L (21-32) 01/20/19 07:00 Anion Gap 4 MMOL/L (8-16) L 01/20/19 07:00 BUN 13.9 mg/dL (7-18) 01/20/19 07:00 Creatinine 0.7 mg/dL (0.55-1.3) 01/20/19 07:00 Est GFR (CKD-EPI)AfAm 117.09 01/20/19 07:00 Est GFR (CKD-EPI)NonAf 101.02 01/20/19 07:00 Random Glucose 91 mg/dL (74-106) 01/20/19 07:00 Calcium 8.5 mg/dL (8.5-10.1) 01/20/19 07:00 Total Bilirubin 0.1 mg/dL (0.2-1) L 01/20/19 07:00 AST 15 U/L (15-37) 01/20/19 07:00 ALT 29 U/L (13-61) 01/20/19 07:00 Alkaline Phosphatase 91 U/L (45-117) 01/20/19 07:00 Total Protein 6.8 g/dl (6.4-8.2) 01/20/19 07:00 Albumin 3.3 g/dl (3.4-5.0) L 01/20/19 07:00 POC Urine HCG, Qual Negative 01/19/19 14:45 RPR Titer Nonreactive (NONREACTIVE) 01/20/19 07:00 lab noted - Treatment Hospital Course: Detox Protocol Followed, Detoxed Safely, Responded well, Discharged Condition Good, Rehab Referral Accepted Patient has Accepted a Rehab Referral to: methadone maintenance program - Medication Discharge Medications: Ambulatory Orders NK [No Known Home Medication] 01/19/19 - Diagnosis (1) Weight loss Status: Acute (2) Alcohol dependence with uncomplicated withdrawal Status: Acute (3) Methadone maintenance therapy patient Status: Chronic (4) Nicotine dependence Status: Acute Qualifiers: Nicotine product type: cigarettes Substance use status: in withdrawal Qualified Code(s): F17.213 - Nicotine dependence, cigarettes, with withdrawal (5) Sedative, hypnotic or anxiolytic dependence with withdrawal, uncomplicated Status: Acute - AMA Did Patient Leave Against Medical Advice: No
[2019-01-22] MEDS ORDERED: diazePAM 5 MG TABLET PO ONE (06:00)
== END 2019-01-21 14:00 | disposition home or self-care (01) | DRG 773 ==
LOC: YASAS 12:14 → Y3N 16:20
PROVIDERS: ADMIT Surgery; ATTEND Surgery
PROC: HZ2ZZZZ Detoxification Services for Substance Abuse Treatment (ICD-10-PCS; principal; 2019-01-19)
DX: F10.230 Alcohol dependence with withdrawal, uncomplicated (principal); F11.20 Opioid dependence, uncomplicated; F13.230 Sedative, hypnotic or anxiolytic dependence with withdrawal, uncomplicated; F17.213 Nicotine dependence, cigarettes, with withdrawal; R63.4 Abnormal weight loss; R01.1 Cardiac murmur, unspecified
CPT/HCPCS: 36415; 80053; 81025; 85027; 86593

== ENCOUNTER 2019-03-16 08:42 | Inpatient (IN) | payer OTHER ==
[2019-03-16 09:08] VITALS: BMI 25.0
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
[2019-03-16] MEDS ORDERED: MAGNESIUM CITRATE 300 ML BOTTLE PO PRN ×2 (09:50→11:26)
[2019-03-16] MEDS ORDERED: METHOCARBAMOL 500 MG TABLET PO PRN (09:50)
[2019-03-16] MEDS ORDERED: MENTHOL/PHENOL 1 EACH UD MM PRN ×2 (09:50→11:26)
[2019-03-16] MEDS ORDERED: hydrOXYzine PAMOATE 25 MG CAPSULE (FP) PO PRN (09:50)
[2019-03-16] MEDS ORDERED: MELATONIN 5 MG TABLETS PO PRN (09:50)
[2019-03-16] MEDS ORDERED: ACETAMINOPHEN 325 MG TABLET (FP) PO PRN ×3 (09:50→11:26)
[2019-03-16] MEDS ORDERED: METHADONE HCL 10 MG TABLET (FOR DETOX USE ONLY) PO ONE (09:50)
[2019-03-16] MEDS ORDERED: cloNIDine HCL 0.1 MG TABLET PO PRN (09:50)
[2019-03-16] MEDS ORDERED: MAG HYDROX/AL HYDROX/SIMETH 30 ML UNIT-DOSE CUP PO PRN ×2 (09:50→11:26)
[2019-03-16] MEDS ORDERED: BISMUTH SUBSALICYLATE 524 MG/30 ML UD PO PRN (09:50)
[2019-03-16] MEDS ORDERED: IBUPROFEN 400 MG TABLET (FP) PO PRN ×2 (09:50→11:26)
[2019-03-16] MEDS ORDERED: MAGNESIUM HYDROX 2400MG/30ML ORAL SUSPENSION 30 ML CUP PO PRN ×2 (09:50→11:26)
[2019-03-16] MEDS ORDERED: NICOTINE 7 MG/24 HOURS TOPICAL PATCH TD SCH (10:00)
[2019-03-16] MEDS ORDERED: PRENATAL VITAMINS W/ FOLIC ACID TABLET (FP) PO SCH (10:00)
[2019-03-16] MEDS ORDERED: guaiFENesin 200 MG/10 ML 10 ML UNIT-DOSE CUPS PO PRN (11:26)
[2019-03-16] MEDS ORDERED: LOPERAMIDE HCL 2 MG CAPSULE PO PRN (11:26)
[2019-03-16] MEDS ORDERED: P-EPHED 60MG/TRIPROLIDI 2.5MG TABLET PO PRN (11:26)
[2019-03-16] MEDS ORDERED: METHADONE HCL 10 MG TABLET PO ONE (11:30)
[2019-03-16] MEDS ORDERED: METHADONE 80 MG, METHADONE 10 MG PO ONE (12:45)
[2019-03-16] MEDS ORDERED: METHADONE HCL 10 MG TABLET ONE (14:07)
[2019-03-16] MEDS ORDERED: METHADONE HCL 40 MG DISPERSABLE TABLET ONE (14:08)
[2019-03-16 14:12] LABS: ALBUMIN 3.8 g/dl (3.4-5.0); BILIRUBIN,TOTAL 0.3 mg/dL (0.2-1); BLOOD UREA NITROGEN 12.3 mg/dL (7-18); CALCIUM 9.2 mg/dL (8.5-10.1); CREATININE 0.9 mg/dL (0.55-1.3); POTASSIUM 4.3 mmol/L (3.5-5.1)
[2019-03-16 14:15] LABS: HEMATOCRIT 44.1 % (32.4-45.2); HEMOGLOBIN 14.3 GM/dL (10.7-15.3); MCHC 32.4 g/dl (32.0-36.0); MEAN CELL VOLUME 86.5 fl (80-96); MEAN PLT VOLUME 8.6 fl (7.5-11.1); PLATELET COUNT 256 K/MM3 (134-434); RBC 5.11 M/mm3 (3.60-5.2); RDW 14.5 % (11.6-15.6); WHITE BLOOD COUNT 7.6 K/mm3 (4.0-10.0)
[2019-03-16] MEDS: NICOTINE 7 MG/24 HOURS TOPICAL PATCH TD SCH (14:26)
[2019-03-16] MEDS: THIAMINE HCL 100 MG TABLET (FP) PO SCH (21:16)
[2019-03-16] MEDS: MELATONIN 5 MG TABLETS PO PRN (21:16)
[2019-03-16] MEDS ORDERED: THIAMINE HCL 100 MG TABLET (FP) PO SCH (22:00)
[2019-03-17] MEDS ORDERED: METHADONE HCL 40 MG DISPERSABLE TABLET ONE (06:27)
[2019-03-17] MEDS ORDERED: METHADONE HCL 10 MG TABLET ONE (06:27)
[2019-03-17] MEDS: METHADONE 80 MG, METHADONE 10 MG PO SCH (06:28)
[2019-03-17] MEDS: PRENATAL VITAMINS W/ FOLIC ACID TABLET (FP) PO SCH (09:28)
[2019-03-17] MEDS: NICOTINE 7 MG/24 HOURS TOPICAL PATCH TD SCH (09:29)
[2019-03-17] MEDS ORDERED: NICOTINE POLACRILEX 2 MG GUM BUC PRN (09:58)
[2019-03-17] MEDS ORDERED: METHADONE (DETOX) 20 MG, METHADONE (DETOX) 5 MG PO ONE (10:00)
--- NOTE | 2019-03-17 10:01 | PN ---
[facility] Progress Note Note: request Colace d/t constipation d/t taking methadone daily. Vital Signs Temperature 97.6 F 03/17/19 07:01 Pulse Rate 64 03/17/19 07:01 Respiratory Rate 18 03/17/19 07:01 Blood Pressure 106/60 03/17/19 07:01 O2 Sat by Pulse Oximetry (%) Laboratory Last Values WBC 7.6 K/mm3 (4.0-10.0) 03/16/19 12:00 RBC 5.11 M/mm3 (3.60-5.2) 03/16/19 12:00 Hgb 14.3 GM/dL (10.7-15.3) 03/16/19 12:00 Hct 44.1 % (32.4-45.2) 03/16/19 12:00 MCV 86.5 fl (80-96) 03/16/19 12:00 MCH 28.0 pg (25.7-33.7) 03/16/19 12:00 MCHC 32.4 g/dl (32.0-36.0) 03/16/19 12:00 RDW 14.5 % (11.6-15.6) 03/16/19 12:00 Plt Count 256 K/MM3 (134-434) 03/16/19 12:00 MPV 8.6 fl (7.5-11.1) 03/16/19 12:00 Sodium 141 mmol/L (136-145) 03/16/19 12:00 Potassium 4.3 mmol/L (3.5-5.1) 03/16/19 12:00 Chloride 104 mmol/L (98-107) 03/16/19 12:00 Carbon Dioxide 29 mmol/L (21-32) 03/16/19 12:00 Anion Gap 8 MMOL/L (8-16) 03/16/19 12:00 BUN 12.3 mg/dL (7-18) 03/16/19 12:00 Creatinine 0.9 mg/dL (0.55-1.3) 03/16/19 12:00 Est GFR (CKD-EPI)AfAm 86.41 03/16/19 12:00 Est GFR (CKD-EPI)NonAf 74.55 03/16/19 12:00 Random Glucose 63 mg/dL (74-106) L 03/16/19 12:00 Calcium 9.2 mg/dL (8.5-10.1) 03/16/19 12:00 Total Bilirubin 0.3 mg/dL (0.2-1) 03/16/19 12:00 AST 27 U/L (15-37) 03/16/19 12:00 ALT 30 U/L (13-61) 03/16/19 12:00 Alkaline Phosphatase 110 U/L (45-117) 03/16/19 12:00 Total Protein 8.0 g/dl (6.4-8.2) 03/16/19 12:00 Albumin 3.8 g/dl (3.4-5.0) 03/16/19 12:00 Patient stable Colace 100 mg BID ordered increase PO fluids ambulate continue to monitor
[2019-03-17] MEDS: DOCUSATE SODIUM 100 MG CAPSULE (FP) PO SCH ×2 (10:35→21:07)
[2019-03-17 15:18] LABS: PH,URINE 7.5 (5.0-8.0); URINE APPEARANCE CLEAR; URINE BILIRUBIN NEGATIVE (NEGATIVE); URINE COLOR YELLOW; URINE GLUCOSE (UA) NEGATIVE (NEGATIVE); URINE KETONE NEGATIVE (NEGATIVE); URINE LEUK ESTERASE NEGATIVE (NEGATIVE); URINE NITRITE NEGATIVE (NEGATIVE); URINE PROTEIN NEGATIVE (NEGATIVE)
[2019-03-17] MEDS: THIAMINE HCL 100 MG TABLET (FP) PO SCH (21:07)
[2019-03-17] MEDS: MELATONIN 5 MG TABLETS PO PRN (21:07)
[2019-03-18] MEDS ORDERED: METHADONE HCL 40 MG DISPERSABLE TABLET ONE (03:16)
[2019-03-18] MEDS ORDERED: METHADONE HCL 10 MG TABLET ONE (03:16)
[2019-03-18] MEDS: METHADONE 80 MG, METHADONE 10 MG PO SCH (06:28)
[2019-03-18 07:27] VITALS: BP 119/78; PULSE 60; TEMP 97.8
[2019-03-18] MEDS: PRENATAL VITAMINS W/ FOLIC ACID TABLET (FP) PO SCH (09:48)
[2019-03-18] MEDS: NICOTINE 7 MG/24 HOURS TOPICAL PATCH TD SCH (09:48)
[2019-03-18] MEDS: DOCUSATE SODIUM 100 MG CAPSULE (FP) PO SCH (09:48)
[2019-03-18] MEDS ORDERED: METHADONE HCL 10 MG TABLET (FOR DETOX USE ONLY) PO ONE (10:00)
--- NOTE | 2019-03-18 16:06 | DS ---
[facility] Rehab Discharge Summary - [facility] Rehab Discharge Summary Admission Date: 03/16/19 Discharge Date: 03/18/19 - History Present History: Alcohol dependence, Cocaine dependence, MMTP, Opioid dependence , Sedative dependence Additional Comments: Pt requests to leave treatment. - Discharge Physical Exam Vital Signs: Vital Signs Temperature 97.8 F 03/18/19 07:26 Pulse Rate 60 03/18/19 07:26 Respiratory Rate 18 03/18/19 07:26 Blood Pressure 119/78 03/18/19 07:26 O2 Sat by Pulse Oximetry (%) - Treatment Discharge Condition: Discharge condition good Hospital Course: Pt left treatment and and will follow up with her M[facility] - Medication Discharge Medications: Ambulatory Orders NK [No Known Home Medication] 01/19/19 - Medication-Assisted Treatment (MAT) Medication-Assisted Treatment (MAT): No - Discharge Instructions Diet, activity, other medical instructions: Diet:Regular diet Activity: oob, ad sofy Other medical instructions:follow up with [facility] for aftercare - Diagnosis (1) Cocaine dependence Status: Chronic Qualifiers: Substance use status: uncomplicated Qualified Code(s): F14.20 - Cocaine dependence, uncomplicated (2) Nicotine dependence Status: Chronic Qualifiers: Nicotine product type: cigarettes Substance use status: in withdrawal Qualified Code(s): F17.213 - Nicotine dependence, cigarettes, with withdrawal (3) Cocaine dependence, uncomplicated Status: Chronic (4) Methadone maintenance therapy patient Status: Chronic (5) Alcohol dependence Status: Chronic Qualifiers: Substance use status: uncomplicated Qualified Code(s): F10.20 - Alcohol dependence, uncomplicated (6) Sedative dependence Status: Chronic - Follow-up Referral Minutes to complete discharge: 15 - AMA Did Patient Leave Against Medical Advice: Yes
--- NOTE | 2019-03-18 16:13 | PN ---
[facility] Progress Note Note: called by nurse Tawny that this patient is headed out the door and does not want to wait for provider to see her before leaving the unit. pt signed out AMA and could not be seen by this ghost writer.
[2019-03-19] MEDS ORDERED: METHADONE (DETOX) 10 MG, METHADONE (DETOX) 5 MG PO ONE (10:00)
[2019-03-20] MEDS ORDERED: METHADONE HCL 10 MG TABLET (FOR DETOX USE ONLY) PO ONE (10:00)
[2019-03-21] MEDS ORDERED: METHADONE HCL 5 MG TABLET (FOR DETOX USE ONLY) PO ONE (06:00)
== END 2019-03-18 11:12 | disposition left against medical advice (07) | DRG 770 ==
LOC: YASAS 08:42 → Y3E 12:27
PROVIDERS: ADMIT Neuromusculoskeletal Medicine & OMM; ATTEND Neuromusculoskeletal Medicine & OMM
PROC: HZ42ZZZ Group Counseling for Substance Abuse Treatment, Cognitive-Behavioral (ICD-10-PCS; principal; 2019-03-16)
DX: F10.20 Alcohol dependence, uncomplicated (principal); F11.20 Opioid dependence, uncomplicated; F13.20 Sedative, hypnotic or anxiolytic dependence, uncomplicated; F14.20 Cocaine dependence, uncomplicated; F17.213 Nicotine dependence, cigarettes, with withdrawal; R01.1 Cardiac murmur, unspecified
CPT/HCPCS: 36415; 80053; 81003; 85027; 86593; 87389